=== PATIENT | male | born 1955 | race Caucasian/White ===

== ENCOUNTER → 2023-04-05 12:14 | Outpatient (REF) | payer OTHER, SELFPAY ==
[2023-04-05 13:30] LABS: Blood Urea Nitrogen 6 mg/dl (9-20); Calcium 8.4 mg/dl (8.4-10.2); Carbon Dioxide 24 mmol/L (22-30); Chloride 103 mmol/L (98-107); Glomerular Filtration Rate 50.9; Glucose 80 mg/dl (70-99); Potassium 3.5 mmol/L (3.5-5.1); Sodium 135 mmol/L (135-145)
== END ==
LOC: OLABP 12:14
PROVIDERS: ATTENDING PHYSICIAN Family Medicine
DX: Z95.1 Presence of aortocoronary bypass graft (principal)
CPT/HCPCS: 36415; 80048

== ENCOUNTER → 2023-09-03 08:01 | Outpatient (REF) | payer MEDICARE, OTHER, SELFPAY | LOC: DHCBS HW 08:01 | PROVIDERS: ATTENDING PHYSICIAN Internal Medicine Cardiovascular Disease; FAMILY PHYSICIAN Family Medicine | DX: R06.09 Other forms of dyspnea (principal) | CPT/HCPCS: 93306 ==

== ENCOUNTER 2024-11-02 20:59 | Emergency (ER) | payer MEDICARE, OTHER, SELFPAY ==
[2024-11-02 21:03] VITALS: BMI 29.3
[2024-11-02 21:08] VITALS: BP 143/110
[2024-11-02 21:30] VITALS: BP 136/103
[2024-11-02 22:00] VITALS: BP 120/85
[2024-11-02 22:24] LABS: % Basophils 0.5 % (0-2); % Eosinophils 0.2 % (0-6); % Immature Granulocytes 3.4 % (0-0.5); % Lymphocytes 12.9 % (20.5-51.1); % Monocytes 10.3 % (1.7-9.3); % Neutrophils 72.7 % (42.2-75.2); Absolute Basophils 0.1 10^3/uL (0-0.2); Absolute Immature Granulocytes 0.6 10^3/uL (0-0.05); Absolute Lymphocytes 2.2 10^3/uL (1.2-3.4); Absolute Monocytes 1.7 10^3/uL (0.1-0.6); Absolute Neutrophils 12.2 10^3/uL (1.4-6.5); Hematocrit 49.2 % (39.0-52.0); Hemoglobin 17.2 g/dL (13.0-18.0); Mean Corpuscular Hgb 29.7 pg (27.0-31.0); Mean Platelet Volume 9.4 fL (7.4-10.4); Nucleated Red Blood Cells % 0 % (-); Platelet Count 191 10^3/uL (130-400); Red Blood Cell Count 5.79 10^6/uL (4.70-6.10); Red Cell Dist. Width 15.4 % (11.5-14.5); White Blood Cell Count 16.8 10^3/uL (4.8-10.8)
[2024-11-02 22:38] LABS: Blood Urea Nitrogen 34 mg/dl (9-20); Calcium 9.4 mg/dl (8.4-10.2); Carbon Dioxide 23 mmol/L (22-30); Chloride 106 mmol/L (98-107); Estimated Creatinine Clearance 52 ml/min; Glucose 108 mg/dl (70-99); Potassium 3.6 mmol/L (3.5-5.1); Sodium 137 mmol/L (135-145); eGFR 46.93
--- NOTE | 2024-11-02 22:54 | ED.GENMED ---
History of Present Illness
General
Chief Complaint: Seizure
Time Seen by Provider: 11/02/24 21:27
History of Present Illness
History of Present Illness:
Patient is a 69-year-old male with history of seizures, CAD, hypertension, hyperlipidemia presenting to the emergency room after a seizure. Patient states that has been under a lot of stress and not sleeping as well. Today he was laying in bed
when he had a generalized tonic-clonic seizure. He did fall off the bed hitting the nightstand. Medics arrived and his seizure was resolved. Did not give him any medications. He has not missed any doses of his Keppra. He did chip his tooth. He
did hit his nose as well as his left knee. He denies any headache. No numbness tingling. He states that his last seizure before this was in July. His primary care doctor prescribes his Keppra.
Past History
Past History
ED Past Medical History: CAD, HTN and Other (Arthritis, hypertension)
ED Past Surgical History: Cardiac (Open heart surgery) and Orthopedic
Social History
Tobacco: Non-smoker
Alcohol: Occasional
Personal:
Living: with family
Employment: Retired
Family History
Family History: CAD
Phy Exam
Physical Exam
Physical Exam:
GENERAL: no acute distress, scattered brusising
HEENT: atraumatic, extraocular muscles intact, no signs of entrapment, small chip to the tooth #8 with no exposed dentin or pulp, tenderness over nasal bridge, small tongue lac, no other obvious trauma
NECK: no midline tenderness, normal range of motion,
BACK: no midline tenderness
CHEST: no tenderness
LUNGS: clear to auscultation bilaterally
CARDIOVASCULAR: regular rate and rhythm
ABDOMEN: soft, non-tender, no masses, no other obvious trauma
PELVIS: stable, no obvious injury
EXTREMITIES: tenderness over left knee otherwise moving all extremities, distal pulses intact, no other obvious trauma
NEUROLOGIC: awake, alert x 3, no focal deficits
Course
Orders/Labs/Results
Orders:
Orders
11/02/24 21:49
CT Facial Bones W/o Iv Contras Urgent
Comment:
Reason For Exam: tenderness of nasal bridge, zygomatic
CT Head W/o Iv Contrast Urgent
Comment:
Reason For Exam: seizure
CR Knee - Left 4 Or More View* Urgent
Comment:
Reason For Exam: trauma
11/02/24 22:15
Basic Metabolic Panel Urgent
Complete Blood Count/With Diff Urgent
Keppra (Levetiracetam) [S] Urgent
11/02/24 22:54
Calcium 200mg(Ca. Carb. 500mg) [Tums Chewable Tablet] 400 mg PO NOW STA
11/02/24 23:06
CT Cervical Spine W/o Iv Contr Urgent
Comment:
Reason For Exam: fall
Abnormal Lab Results
11/02/24
22:15
WBC 16.8 H 10^3/uL
(4.8-10.8)
RDW 15.4 H %
(11.5-14.5)
Abs Immat Gran (auto) 0.6 H 10^3/uL
(0-0.05)
Absolute Neuts (auto) 12.2 H 10^3/uL
(1.4-6.5)
Absolute Monos (auto) 1.7 H 10^3/uL
(0.1-0.6)
Immature Gran % 3.4 H %
(0-0.5)
Lymphocytes % 12.9 L %
(20.5-51.1)
Monocytes % 10.3 H %
(1.7-9.3)
BUN 34 H mg/dl
(9-20)
Creatinine 1.6 H mg/dL
(0.7-1.3)
Glucose 108 H mg/dl
(70-99)
11/02/24 22:15
11/02/24 22:15
Vital Signs
Initial and Last Documented VS:
Initial Vital Signs
Temp Pulse Resp Pulse Ox
97.6 F 104 18 98
11/02/24 21:03 11/02/24 21:03 11/02/24 21:03 11/02/24 21:03
Last Documented Vital Signs
Temp Pulse Resp BP Pulse Ox
97.6 F 80 16 118/70 98
11/02/24 21:03 11/03/24 00:32 11/03/24 00:32 11/03/24 00:32 11/03/24 00:32
MDM/Problems Addressed
Differential Diagnosis Includes:
Patient is a 69-year-old male presenting to the emergency department with a seizure. On arrival patient's vital signs are unremarkable exam does show scattered bruising, tenderness over his nasal bridge as well as his left knee. Concern for
traumatic injuries given the seizure and he fell off the bed. Seizure likely secondary to stress/sleep. Patient is afebrile so unlikely to be infectious and he does not have any signs or symptoms of an infection. He is compliant with his
medications. I did discuss with neurology who recommended increasing his Keppra to 750 mg twice daily. Blood work obtained. Does show leukocytosis which is likely a stress response. Creatinine is similar to prior. Will send out Keppra level.
Will obtain CT scan and x-ray of his knee for any traumatic injuries.
*Critical Care Note
Total Time (30-74mins, 75-104mins- exclusive of procedures): Not Applicable
Update Note
Update Note:
X-ray per my interpretation with no obvious fracture. Patient has been ambulatory. CT scans negative. Will discharge at this time.
Of note patient's does state that he recent started taking Flexeril for back pain. I did advise him that that can lower his seizure threshold and to stop taking the Flexeril.
ED Attending Note
-
Portions of this chart may have been created with voice recognition software.� Occasional wrong word or��sound alike� substitutions may have occurred due to the inherent limitations of voice recognition software.
Discharge Plan
Departure
Patient Disposition: Home (Routine Discharge)
Date of Disposition: 11/03/24
Time of Disposition: 00:36
Patient with high blood pressure during this ER visit?: No
Discharge Problem:
Seizure
Instructions: Seizures, Adult (DC)
Prescriptions:
New
levetiracetam [Keppra] 750 mg tablet
750 mg PO BID Qty: 60 0RF
No Action
levetiracetam [Keppra] 500 mg Tablet
500 mg PO BID
aspirin 81 mg Tablet,Delayed Release (Dr/Ec)
81 mg PO DAILY
cyanocobalamin (vitamin B-12) 1,000 mcg Tablet
1,000 mcg PO DAILY
therapeutic multivitamin Tablet
1 tab PO DAILY
clopidogrel 75 mg Tablet
75 mg PO DAILY Qty: 90 2RF
metoprolol tartrate 25 mg Tablet
25 mg PO BID Qty: 90 2RF
acetaminophen 325 mg Tablet
650 mg PO Q6HPRN PRN (Reason: mild pain,headache,temp >101F ) Qty: 0 0RF
furosemide 40 mg Tablet
40 mg PO DAILY Qty: 3 0RF
magnesium oxide 400 mg magnesium tablet
400 mg PO BID Qty: 90 2RF
Gralise 900 mg Tablet Extended Release 24 Hr
900 mg PO DAILY
rosuvastatin 20 mg tablet
20 mg PO HS
oxycodone 5 mg Tablet
5 mg PO Q6HPRN PRN (Reason: mild pain) Qty: 20 0RF
tizanidine 4 mg tablet
4 mg PO HS PRN (Reason: Muscle Spasms) Qty: 0 0RF
Referrals:
Casimiro Zepeda MD [Active] - Call in 1-3 days for appt
UNKNOWN - PT DOES,NOT KNOW [Family Provider] -
Activity Restrictions/Additional Instructions:
You were seen in the Emergency Department today for a seizure. While you were here we performed blood work, which was reassuring. He did have a slight elevation in your white count which likely is a stress response from your seizure. Please make
sure you follow-up with your primary care doctor to make sure it comes down.
Regarding your seizures we did increase your Keppra to 750 mg twice daily. Please make sure you follow-up with neurologist. I did give you our neurologist to follow-up with. Please make sure you get enough sleep. Please discontinue taking the
Flexeril as that might have also contributed to the seizure today.
Regarding your chipped tooth please make sure you follow-up with a dentist.
We would like for you to follow up with your primary care physician for further evaluation. If you experience fever, worsening of your symptoms, or develop any other new or concerning symptoms, please return to the Emergency Department immediately.
Please see the attached sheet for additional information.
Interventions
Interventions:
*Risk Screen - Suicide Last Done: 11/02/24 21:03
*General Assessment Last Done: 11/02/24 21:03
*Neglect/Abuse Screening Last Done: 11/02/24 21:03
*ED- Fall Risk Assessment Last Done: 11/02/24 21:03
*ED COVID-19 Vaccine History Last Done: 11/02/24 21:03
ED- Cardiac Assessment Last Done: 11/02/24 21:12
ED- Neurological Assessment Last Done: 11/03/24 00:32
ED- Pulmonary Assessment Last Done: 11/02/24 21:12
Discharge Date and Time
Print Language: PUERTO RICAN
[2024-11-02] MEDS: TUMS CHEWABLE TABLET 400 MG PO (23:04)
[2024-11-02 23:14] VITALS: BP 114/86
[2024-11-03 00:32] VITALS: BP 118/70
[2024-11-03 00:45] VITALS: BP 116/67
[2024-11-04 20:48] LABS: Keppra (Levetiracetam) 25 ug/mL (10-40)
== END 2024-11-03 00:54 | disposition home or self-care (01) ==
LOC: EMR 20:59
PROVIDERS: EMERGENCY PHYSICIAN Student in an Organized Health Care Education/Training Program
DX: R56.9 Unspecified convulsions (principal); I10 Essential (primary) hypertension; I25.10 Atherosclerotic heart disease of native coronary artery without angina pectoris; E78.00 Pure hypercholesterolemia, unspecified; M19.90 Unspecified osteoarthritis, unspecified site; Z82.49 Family history of ischemic heart disease and other diseases of the circulatory system
CPT/HCPCS: 99284; 70450; 70486; 72125; 73564; 80048; 80177; 85025

== ENCOUNTER 2025-01-07 22:19 | Inpatient (IN) | payer MEDICARE, OTHER, SELFPAY ==
[2025-01-07] VITALS (8 sets, daily range): BP systolic 77–128; BP diastolic 58–79; BMI 29.2; BMI 27.5
--- NOTE | 2025-01-07 19:55 | ED.GENMED ---
History of Present Illness
General
Chief Complaint: Weakness
Source: patient and spouse
Exam Limitations: none
Time Seen by Provider: 01/07/25 19:42
Nursing documentation reviewed up to this point in time: agreed with
History of Present Illness
History of Present Illness:
69-year-old male presents with low blood pressure weakness onset 2 weeks ago has CAD status post bypass surgery in 2022 seizure disorder on Keppra no seizure for a few years recently change his meds but did not get the new prescription yet, injury
to his right leg ran into a hard object with some erythema some drainage no fever no chest pain does feel short of breath has had some urinary incontinence, no hematuria no dark or bloody stools
Past History
Past History
ED Past Medical History: CAD, HTN and Other (Arthritis, hypertension)
ED Past Surgical History: Cardiac (Open heart surgery) and Orthopedic
Social History
Tobacco: Non-smoker
Alcohol: Occasional
Drug: None
Personal:
Living: with family
Employment: Retired
Family History
Family History: CAD
Phy Exam
Physical Exam
Physical Exam:
Physical Exam
General: Ill-appearing male normal mental
Neck: Dry lips
Heart: Regular
Lungs: Faint crackle
Abdomen nontender
Neuro: alert and oriented. no focal neurological deficits globally
Skin: no rash
Psychiatric: well kept. interactive and cooperative
Extremities: 4 x 5 cm area of erythema without warmth with drainage on the right lateral calf
Course
Orders/Labs/Results
Orders:
Orders
01/07/25 19:26
Electrocardiogram (*1) Urgent
Reason for Study: Syncope
EKG- Treatment ONCE
01/07/25 19:53
Cardiac Monitoring- Treatment ONCE
IV Insert/Care/Rem.- Treatment PRN
Urinalysis Reflex To Culture Urgent
01/07/25 19:54
Electrocardiogram (*1) Urgent
Reason for Study: Other
Other Reason for Exam: sepsis
EKG- Treatment ONCE
0.9% Sodium Chloride 500 ml [Nss] 500 ml IV BOLUS
CR Chest Portable - 1 View Urgent
Comment:
Reason For Exam: low bp
Reason Study Needs to be Portable: Unable to Transport
01/07/25 20:07
Complete Blood Count/With Diff Urgent
Comprehensive Metabolic Panel Urgent
Cortisol, Random Urgent
Lactic Acid Q4H
Comment: CANCEL 2nd LACTIC ACID IF 1st LACTIC ACID IS LESS THAN 2
NT-proBNP Urgent
PTT Urgent
Prothrombin Time Urgent
TSH Urgent
Troponin I Urgent
01/07/25 20:08
Blood Culture Q30M
HEATHER Source: Blood/Venous
Specimen Description:
01/07/25 20:30
Blood Culture Q30M
HEATHER Source: Blood/Venous
Specimen Description:
01/07/25 20:51
Bladder Scan- Treatment ONCE
01/08/25 00:00
Lactic Acid Q4H
Comment: CANCEL 2nd LACTIC ACID IF 1st LACTIC ACID IS LESS THAN 2
Abnormal Lab Results
01/07/25
20:07
Abs Immat Gran (auto) 0.4 H 10^3/uL
(0-0.05)
Absolute Monos (auto) 1.4 H 10^3/uL
(0.1-0.6)
Immature Gran % 3.9 H %
(0-0.5)
Monocytes % 14.8 H %
(1.7-9.3)
Sodium 133 L mmol/L
(135-145)
BUN 39 H mg/dl
(9-20)
Creatinine 3.5 H mg/dL
(0.7-1.3)
Calcium 12.4 H mg/dl
(8.4-10.2)
Total Protein 5.6 L g/dl
(6.3-8.2)
Albumin 3.4 L g/dl
(3.5-5.0)
01/07/25 20:07
01/07/25 20:07
Vital Signs
Initial and Last Documented VS:
Initial Vital Signs
Temp Pulse Resp BP Pulse Ox
97.5 F 68 20 88/58 100
01/07/25 19:17 01/07/25 19:17 01/07/25 19:17 01/07/25 19:17 01/07/25 19:17
Last Documented Vital Signs
Temp Pulse Resp BP Pulse Ox
97.5 F 79 20 82/67 96
01/07/25 19:17 01/07/25 20:30 01/07/25 20:30 01/07/25 20:30 01/07/25 19:55
MDM/Problems Addressed
Differential Diagnosis Includes:
Cardiogenic electrolyte dehydration conceivably PE infection
MDM/Problems Addressed:
Fatigue low blood pressure
Chronic conditions affecting care: CAD and Neurological disorder
Acute Exacerbation and/or Progression of Chronic Illness: CAD and Neurological disorder
*Radiology
Radiology exam reviewed: preliminary read by ED provider
*Pulse Oximetry
SaO2: 96
Nasal Cannula flow liters per minute: 97
Oxygen Mode of Delivery: Room air
Patient hypoxic: no
*EKG
Interpreted by ED Provider?: Yes
Interpretation: abnormal
Comparison EKG: no changes
Heart Rate: 70
Rate: normal
Rhythm: sinus
Ischemia: other (Age-indeterminate inferior MN)
*Peanut Separator Interpretation
Rate: normal
Interpretation: normal
Heart Rate: 70
*Critical Care Note
Total Time (30-74mins, 75-104mins- exclusive of procedures): 32
Update Note
Update Note:
Update labs noted acute on chronic renal sufficiency prior nephrology notes reviewed
Will check bladder scan
ED Attending Note
-
Portions of this chart may have been created with voice recognition software.� Occasional wrong word or��sound alike� substitutions may have occurred due to the inherent limitations of voice recognition software.
Discharge Plan
Departure
Patient Disposition: Admit
Date of Disposition: 01/07/25
Time of Disposition: 20:55
Presentation/result/management discussed w/ accepting MD/DO: Hospitalist
Patient with high blood pressure during this ER visit?: No
Condition: Fair
Discharge Problem:
RICCI (acute kidney injury)
Prescriptions:
No Action
Theragen Tablet
1 tab PO NOON
amlodipine 5 mg Tablet
5 mg PO DAILY
levetiracetam 750 mg Tablet
750 mg PO BID
diazepam 5 mg Tablet
5 mg PO BIDPRN PRN (Reason: anxiety)
valsartan 160 mg Tablet
160 mg PO HS
magnesium oxide 400 mg magnesium Tablet
400 mg PO HS
Referrals:
Noel Matthews DO [Family Provider, Family Practice]
Interventions
Interventions:
ED- Cardiac Assessment Last Done: 01/07/25 19:51
ED- Neurological Assessment Last Done: 01/07/25 19:51
ED- Pulmonary Assessment Last Done: 01/07/25 19:51
Discharge Date and Time
Print Language: NEPALI
[2025-01-07] MEDS: NSS 500 IV (20:15)
[2025-01-07 20:27] LABS: Hematocrit 43.7 % (39.0-52.0); Hemoglobin 15.7 g/dL (13.0-18.0); Mean Corp Hgb Conc. 35.9 g/dL (33.0-37.0); Mean Corpuscular Volume 86.2 fL (80.0-94.0); Nucleated Red Blood Cells % 0 % (-); Platelet Count 371 10^3/uL (130-400); Red Cell Dist. Width 13.9 % (11.5-14.5)
[2025-01-07 20:36] LABS: APTT 31.4 Sec (23.4-35.0); INR 0.96; PT 13.3 Sec (11.4-14.6)
[2025-01-07 20:48] LABS: ALT (SGPT) 19 U/L (0-50); AST (SGOT) 20 U/L (17-59); Albumin 3.4 g/dl (3.5-5.0); Alkaline Phosphatase 61 U/L (38-126); Blood Urea Nitrogen 39 mg/dl (9-20); Calcium 12.4 mg/dl (8.4-10.2); Carbon Dioxide 23 mmol/L (22-30); Chloride 102 mmol/L (98-107); Estimated Creatinine Clearance 23 ml/min; Glucose 87 mg/dl (70-99); Potassium 3.8 mmol/L (3.5-5.1); Sodium 133 mmol/L (135-145); Total Protein 5.6 g/dl (6.3-8.2); eGFR 18.35
[2025-01-07 20:49] LABS: Troponin I < 0.012 ng/ml
--- NOTE | 2025-01-07 20:51 | PHANOTE ---
01/07/2025, pt. was recently prescribed Briviact 100 mg BID to replace his Keppra 750 mg BID and Nayzilam 5 mg 1 spray intranasal BIDPRN for seizures, but has not had a chance to start either of these medications.
--- NOTE | 2025-01-07 20:57 | HPS.HSE ---
Addendum entered and electronically signed by Meena Armas MD 01/20/25 07:01:
Allergies
Allergy/AdvReac Type Severity Reaction Status Date / Time
No Known Allergies Allergy Verified 01/07/25 19:21
Home Medications
diazepam 5 mg tablet 5 mg PO BIDPRN PRN anxiety 01/07/25
magnesium oxide 400 mg PO HS Supplement 01/07/25
therapeutic multivitamin 1 tab PO NOON Supplement 01/07/25
brivaracetam 50 mg tablet (Briviact) 100 mg (2 x 50 mg) PO BID 30 days #120 tabs 01/13/25
cephalexin 500 mg capsule 500 mg PO QID 2 days #8 caps 01/13/25
doxycycline hyclate 100 mg capsule 100 mg PO BID 3 days #6 caps 01/13/25
nifedipine 30 mg tablet,extended release 30 mg PO DAILY 30 days #30 tabs 01/13/25
Original Note:
Family Physician
-
Family Physician: Noel Matthews
Chief Complaint
-
Weakness
History of Present Illness
This is a 69-year-old male with past medical history significant for CKD stage III, CAD status post CABG, hypertension, hyperlipidemia, EFRAIN, BPH, history of seizure disorder presented to the emergency department with weakness.
Patient reports 2 weeks of generalized weakness, shortness of breath and low blood pressures. He did see a neurologist yesterday and was told to follow-up with primary care. He had a blood pressure of 88/58 at the clinic.
Patient reports that he has been having increasing fatigue, decreased p.o. intake over the last 2 weeks. He denies abdominal pain. He denies any nausea, diarrhea or vomiting. He denies having any chest pain. Denies any new falls or injuries.
Patient denies any fever or chills, tick bites, recent travels or sick contacts. He states that he has discontinued his hydrochlorothiazide but continue to take the valsartan.
His last seizure was on December 27. After the seizure the patient's Keppra was to be increased to 1000 twice daily he was instead started on brivaracetam 100 mg twice daily although he has not picked up the prescription yet. He denies any other
seizures since the December 27.
Patient reports urinary frequency but without urgency. He also reports some nocturia. He denies any pelvic pain. He denies flank pain. Patient denies constipation. Reports chronic back pain with radicular symptoms that been going on for several
years. He does note some numbness in his lower extremities. He feels weak now he has recently started using a wheelchair.
Patient denies any chest pain. He denies palpitations. Reports shortness of breath but no chest pain pleuritic or otherwise.
Has not been any hematuria. Denies any melena or hematochezia. Denies any other changes in his medications. Denies nsaids. Denies contrast exposure.
Patient denies urinary frequency or incontinence. He denies hesitancy or urgency.
In the emergency department his blood pressure was 80/60 with a pulse of 79 and he was satting 98% on room air. His temperature was nine 7.5.
Chest x-ray shows no acute infiltrate. ECG with a normal sinus rhythm and and known T wave inversion in lead III. His troponin is negative. BNP is negative.
CBC is unremarkable. His electrolytes notable for sodium of 133 but otherwise unremarkable. His creatinine is 3.5 up from 1.6 BUN is 39. His calcium is elevated at 12.4. Albumin is normal at 3.4 with total protein of 5.6. LFTs otherwise
unremarkable.
Medical History
Past Medical History
Past Medical History: Reports Other
Additional Past Medical History:
CAD
HTN
HLD
CKDIII
remote seizure disorder (last 2018)
Arthritis
BPH
gout
chronic anemia
Past Surgical History: Reports Other (CABG x 3 NATION-LAD; SVG-D1; SVG-OM (03/19/23))
Additional Past Surgical History:
R CATALINO
RLE vein ablation
B/L inguinal hernia repair
Social History
Tobacco: Non-smoker
Alcohol: Occasional
Drug: None
Personal:
Living: With Family
Employment: Retired
Family History
Family History: CAD
Allergies / Home Medications
Allergies reflects when Allergies were last updated in [facility].
Home Medications with original date entered in [facility]
Allergy/Medication List:
NKDA
Review of Systems
-
History Source: Patient and Family
A 12 point ROS was completed and negative except as noted: Yes
Constitutional: Reports See HPI
EENT: Reports No Symptoms
Respiratory: Reports Other (Dyspnea on exertion)
Cardiac: Denies Chest Pain or Diaphoresis
Abdomen/GI: Reports Anorexia; Denies Abdominal Pain, Nausea, Vomiting, Diarrhea, Constipated, Bloody Stools or Black Stools
: Reports No Symptoms
Skin: Reports Other (Laceration of the right lower extremity)
Neurological: Reports Weakness
Endocrine: Reports No Symptoms
Hematologic/Lymphatic: Reports No Symptoms
Psych: Reports No Symptoms
Physical Exam
Vital Signs
Vital Signs
Temp Pulse Resp BP Pulse Ox
97.5 F 79 20 82/67 96
01/07/25 19:17 01/07/25 20:30 01/07/25 20:30 01/07/25 20:30 01/07/25 19:55
Physical Exam
General: Well Developed, Well Nourished and Other (rigors)
HEENT: NormoCephalic
Respiratory: Clear
Cardiac: S1/S2 and Regular Rhythm
Breast: N/A
GI: Soft
Rectal: Brown
Genito-urinary: Deferred by me
Musculoskeletal: No Clubbing, No Cyanosis and No Edema
Skin: Warm, Dry and Other (median sternotomy intact w/o erythema; left thigh SVG site ecchymotic, no erythema)
Neuro: AO x 3, Cranial Nerves Intact, No Sensory Deficits and Other (bilateral lower extremity weakness.)
Hematologic/Lymphatic: No Lymphadenopathy
Psych: Anxious
Laboratory Results
-
01/07/25 20:07
01/07/25 20:07
Laboratory Results
PT 13.3 Sec (11.4-14.6) 01/07/25 20:07
INR 0.96 01/07/25 20:07
APTT 31.4 Sec (23.4-35.0) 01/07/25 20:07
Lactic Acid 1.7 mmol/L (0.7-2.0) 01/07/25 20:07
Total Bilirubin 0.7 mg/dl (0.2-1.3) 01/07/25 20:07
AST 20 U/L (17-59) 01/07/25 20:07
ALT 19 U/L (0-50) 01/07/25 20:07
Alkaline Phosphatase 61 U/L (38-126) 01/07/25 20:07
Troponin I < 0.012 ng/ml 01/07/25 20:07
Data Reviewed
-
Diagnostic Radiology: Report Reviewed by me
Medical Tests (Nuc Med, Echo, EKG etc): Image Personally Visualized and interpreted
Lab Data: Labs Reviewed by me
Old Records: Reviewed
Impression/Plan
-
IMPRESSION:
Six 9-year-old with past medical history of CAD status post CABG, hypertension, seizure disorder, chronic back pain, CKD who presents to the emergency department with low blood pressures and 2 weeks of weakness decreased p.o. intake was found to
have RICCI with a creatinine of 3. He has EKG with a normal sinus rhythm, chest x-ray was clear, troponin was negative. BNP shows no heart failure. Labs notable for creatinine of 3.54 from a baseline of 1.6 with a calcium of 12.4 and albumin
albumin of 3.4. He is CBC was completely unremarkable. He was borderline hypotensive with a systolic blood pressure in the 80s.
PLAN:
1. Low BP - Unclear etiology as no signs of acute infection, heart failure or cardiomyopathy. Suspect hypovolemia, medication induced.
- admit to med/surg
- hold valsartan and amlodipine
- check orthostatic
- tsh and cortisol pending
- echo
- check esr/crp , blood cx
- IV fluids with NS for now
- u/a, ucx
- nephrology consulted
2. RICCI - Suspect from hypotension but cannot rule out obstruction given hx. Also hypercalcemia. TP/Alb ratio is normal.
- u/a, urine protein/cr
- i/o, non-oliguric but will check urine sodium
- bladder scan
- Kidney/bladder us
- hold valsartan and amlodipine as above
- check cpk and inflammatory panel
3. Hypercalcemia - Unclear etiology but corrected calciuim is elevated
- check phosph, pth, vit d
- IV fluids for now
- no indication for calcitonin or pamidronate at this time
- check spep
4.seizure d/o - last seizure 12/27
- continue with brivaracetam 100 bid
DVT PPX - heparin sq
Code statu s- Full Code
[2025-01-07 21:18] LABS: Cortisol, Random 4.4 ug/dl; TSH 2.29 uIU/ml (0.47-4.68)
[2025-01-07] MEDS: BRIVIACT 100 MG PO (22:07)
[2025-01-07] MEDS: FLUSH (NSS) 1 FLUSH IV (22:07)
[2025-01-07] MEDS: NSS 1000 IV (22:08)
[2025-01-08] MEDS: NSS 1000 IV ×3 (00:13→22:08)
[2025-01-08] MEDS: HEPARIN SC (00:13)
[2025-01-08] MEDS: TYLENOL 650 MG PO ×2 (00:23→16:10)
[2025-01-08 07:00] VITALS: BP 119/79
[2025-01-08] MEDS: BRIVIACT 100 MG PO ×2 (08:36→20:21)
[2025-01-08] MEDS: HEPARIN 5000 UNITS SC ×2 (08:37→15:14)
[2025-01-08 09:59] LABS: Hematocrit 42.7 % (39.0-52.0); Hemoglobin 14.8 g/dL (13.0-18.0); Mean Corp Hgb Conc. 34.7 g/dL (33.0-37.0); Mean Corpuscular Volume 88.0 fL (80.0-94.0); Platelet Count 303 10^3/uL (130-400); Red Cell Dist. Width 13.8 % (11.5-14.5)
[2025-01-08 10:20] VITALS: BP 118/82; BP 119/82; BP 123/88; PULSE 85; PULSE 91
[2025-01-08 10:48] LABS: Blood Urea Nitrogen 37 mg/dl (9-20); Calcium 12.2 mg/dl (8.4-10.2); Carbon Dioxide 23 mmol/L (22-30); Chloride 104 mmol/L (98-107); Estimated Creatinine Clearance 26 ml/min; Glucose 79 mg/dl (70-99); Magnesium 2.5 mg/dl (1.6-2.3); Potassium 4.4 mmol/L (3.5-5.1); Sodium 135 mmol/L (135-145); eGFR 20.43
[2025-01-08 11:03] LABS: C-Reactive Protein 15.30 mg/L (0.0-10.00)
[2025-01-08 11:04] LABS: Vitamin D, 25-OH*** 99.1 ng/mL (30-80)
[2025-01-08 11:37] LABS: Vitamin B12 > 1000 pg/ml (239-931)
--- NOTE | 2025-01-08 11:43 | CARDSERVLU ---
Echocardiogram with Lumason completed after protocol screening completed. Allergies verified.
Patent IV site: _Left arm accessory cephalic 18 G PC (in patient)____
IV site flushed with 0.9% NaCl pre and post administration.
Diluted bolus method utilized to enhance visualization of ventricular simon.
Total volume given: _3___ mL
Patient tolerated all procedures well without complications.
--- NOTE | 2025-01-08 13:24 | WOUNDNOTE ---
RIGHT LEG WOUND
--- NOTE | 2025-01-08 13:24 | WOUNDNOTE ---
RIGHT LEG WOUND
--- NOTE | 2025-01-08 13:24 | WOUNDNOTE ---
RIGHT LEG WOUND
--- NOTE | 2025-01-08 13:25 | WOUNDNOTE ---
RIGHT LEG WOUND
[2025-01-08 13:56] LABS: Urine Character Clear (Clear)
[2025-01-08 14:10] LABS: Urine Squamous Cell 0-2 /LPF (Few)
--- NOTE | 2025-01-08 14:36 | W.PN.HOSP.TC ---
Today's Communication/Plan
-
see A/P
Assessment / Plan
Assessment / Plan
HPI: 69-year-old M with past medical history of CAD status post CABG, hypertension, seizure disorder, chronic back pain, CKD stage III, BPH; who presented with low blood pressures and 2 weeks of weakness, decreased p.o. intake, and was found to have
RICCI with a creatinine of 3.54 from a baseline of 1.6. Also calcium of 12.4.
He was borderline hypotensive with a systolic blood pressure in the 80s on admission.
Of note, his last seizure was on December 27. After the seizure the patient's Keppra was to be increased to 1000 twice daily he was instead started on brivaracetam 100 mg twice daily although he has not picked up the prescription yet. He denies any
other seizures since the December 27.
A/P:
# Dehydration with Low BP, RICCI and hypercalcemia
hold [employer]PRES[employer] valsartan and amlodipine
orthostatic VS equivocal
blood culture were sent, follow up
CRP mildly elevated at 15
Cont IVF NSS, adjust to 100 cc/hr
Noted TSH WNL at 2.29, but random cortisol level at 4.4. Can check morning cortisol level
# RICCI on CKD stage 3
RICCI suspect from dehydration
SCr 3.5 on admission -> 3.2 today
Cont IVF as above
Check bladder scan with urinary retention protocol
Kidney/bladder US unrevealing: Findings suggesting chronic medical renal disease, similar to prior. Prostatomegaly.
Renal CS
hold valsartan and amlodipine as above
SPEP sent, follow up
# hypercalcemia, suspect from dehydration
Noted 25 vit D level high at 99, Phosphate level high at 5
Follow PTH level
IVF as above
Renal CS as above
# RLE wound from injury on 12/19 from hitting a table
# Possible RLE cellulitis
appreciate wound RN
Check arterial US , venous US
Can start empiric Abx Ancef/doxycycline
Consider ID CS if not improving
# Seizure d/o - last seizure 12/27
continue with brivaracetam 100 bid, Valium PRN
DVT PPX - heparin sq
Code status- Full Code
d/w son at bedside
total time spent 51 min
Anticipated Discharge: 24 - 48 hours
Subjective/Interval History
-
Date of Service: January 08, 2025
Objective Data
-
Labs:
Laboratory Results
01/08/25
09:31
WBC 7.6
Hgb 14.8
Hct 42.7
Plt Count 303
Sodium 135
Potassium 4.4
Chloride 104
Carbon Dioxide 23
BUN 37 H
Creatinine 3.2 H
Glucose 79
Calcium 12.2 H
Vital Signs:
Vital Signs
Temp Pulse Resp BP Pulse Ox
36.5 C 76 18 119/79 97
01/08/25 07:00 01/08/25 07:00 01/08/25 07:00 01/08/25 07:00 01/08/25 08:15
Review of Systems
-
History Source: Patient
All other systems: Reviewed and negative
Physical Exam
-
General: Well Developed, Well Nourished, No Apparent Distress and Comfortable
HEENT: Normocephalic and Atraumatic
Respiratory: Clear to Auscultation and Non Labored Respirations; Negative Wheezes, Rales or Accessory Resp Muscle Use
Cardiac: Regular Rhythm and S1/S2
GI: Soft and Nontender
Musculoskeletal: No Edema
Skin: Other (RLE wound, see wound care note )
Neuro: Awake and Alert
Psych: Calm and Intact Judgement/Insight
Data Reviewed
-
Labs: Labs Reviewed by me
--- NOTE | 2025-01-08 14:59 | WOUNDNOTE ---
RIGHT GREAT TOE
--- NOTE | 2025-01-08 14:59 | WOUNDNOTE ---
RIGHT LEG WOUND
--- NOTE | 2025-01-08 15:10 | W.CON.NEPH ---
Consultation
-
Date/Time Consultation Requested: 01/08/2025 3:00 PM
Date/Time Consultation Performed: 01/08/2025 3:15 PM
Requesting Provider: Dr. Strong
Performing Provider: Dr. Yeager
Reason for Consultation: Acute kidney injury, hypercalcemia
Medical History
-
Chief Complaint: Acute kidney injury/hypercalcemia
History of Present Illness:
The patient is a 69-year-old male with a past medical history of hypertension maintained on amlodipine and valsartan. He has known chronic kidney disease stage III and maintains a baseline creatinine of 1.6 as of October 2024. He has a known history
of coronary artery disease and has undergone previous CABG procedure. He is maintained on Levetiracetam for seizure history. He presented to the hospital last night after having 2 weeks of generalized weakness shortness of breath and low blood
pressure. The patient reports that he has had increasing fatigue decreased p.o. intake over the past 2 weeks. He denies any associated abdominal pain nausea vomiting or diarrhea. He denied any associated chest pain. He denied any fevers chills
or rigors. He states that he had recently discontinued his hydrochlorothiazide but continued his valsartan. He had had a recent seizure on December 27. After that seizure the patient's Keppra was increased to 1000 mg twice daily. The patient
presented to the hospital hypotensive with systolic blood pressure of 80/60. Of note he was in acute renal failure with his creatinine up to 3.5 off of his baseline of 1.6 noted in October 2024. There was also associated hypercalcemia with a calcium
of 12.4 and nephrology was asked to see the patient.
Past Medical History
CAD
HTN
HLD
CKDIII (1.6)
remote seizure disorder (last 2018)
Arthritis
BPH
gout
chronic anemia
Past Surgical History: Reports Other (CABG x 3 NATION-LAD; SVG-D1; SVG-OM (03/19/23))
Additional Past Surgical History:
R CATALINO
RLE vein ablation
B/L inguinal hernia repair
Social History
Tobacco: Non-Smoker
Alcohol: Occasional
Drug: None
Personal:
Living: With Family
Family History
no CKD
Family History: Not Pertinent
Allergies / Home Medications
Allergy/AdvReac Type Severity Reaction Status Date / Time
No Known Allergies Allergy Verified 01/07/25 19:21
�Medication �Instructions �Recorded �Confirmed �Type
amlodipine 5 mg tablet 5 mg PO DAILY Blood Pressure 01/07/25 01/07/25 History
diazepam 5 mg tablet 5 mg PO BIDPRN PRN anxiety 01/07/25 01/07/25 History
levetiracetam 750 mg tablet 750 mg PO BID Neurological 01/07/25 01/07/25 History
Condition
magnesium oxide 400 mg PO HS Supplement 01/07/25 01/07/25 History
therapeutic multivitamin 1 tab PO NOON Supplement 01/07/25 01/07/25 History
valsartan 160 mg tablet 160 mg PO HS Blood Pressure 01/07/25 01/07/25 History
Review of Systems
-
History Source: Patient
All other systems: Negative unless noted
Constitutional: Weight Loss (20 pounds over the past 2 to 3 weeks) and Other (Weakness)
Respiratory: Other (Some dyspnea on exertion)
Abdomen/GI: No Symptoms and Anorexia
: Other (Chronic nocturia no hematuria)
Musculoskeletal: Other (Chronic back pain)
Skin: Other (Right leg wound)
Neurological: Numbness (Numbness in his lower extremities) and Other (Last seizure December 27)
Physical Exam
Vital Signs
Vital Signs
Temp Pulse Resp BP Pulse Ox
97.7 F 76 18 119/79 97
01/08/25 07:00 01/08/25 07:00 01/08/25 07:00 01/08/25 07:00 01/08/25 08:15
Lab Results
01/08/25 09:31
01/08/25 09:
WBC 7.6 10^3/uL (4.8-10.8) 01/08/25 09:
RBC 4.85 10^6/uL (4.70-6.10) 01/08/25 09:
Hgb 14.8 g/dL (13.0-18.0) 01/08/25 09:
Hct 42.7 % (39.0-52.0) 01/08/25 09:
Plt Count 303 10^3/uL (130-400) 01/08/25 09:
Sodium 135 mmol/L (135-145) 01/08/25 09:
Potassium 4.4 mmol/L (3.5-5.1) 01/08/25
Chloride 104 mmol/L (98-107) 01/08/25 09:
Carbon Dioxide 23 mmol/L (22-30) 01/08/25 09:
BUN 37 mg/dl (9-20) H 01/08/25 09:
Creatinine 3.2 mg/dL (0.7-1.3) H 01/08/25 09:
eGFR 20.43 01/08/25 09:
Glucose 79 mg/dl (70-99) 01/08/25 09:
Calcium 12.2 mg/dl (8.4-10.2) H 01/08/25 09:
Phosphorus 5.0 mg/dl (2.5-4.5) H 01/08/25 09:
Ajy-A-Zwxkaenncmq Pept 281 pg/ml 01/07/25 20:07
Albumin 3.4 g/dl (3.5-5.0) L 01/07/25 20:07
Physical Exam
General: AOx3, Nontoxic , NAD
HEENT: PERRL, EOMI, Anicteric, Conjunctivae Clear, Ear/Nose Intact, Hearing Normal, Oropharynx Clear/Moist, Dentition Intact, Facial Symmetry, Neck Supple, Neck: Trachea Midline, No JVD and No Thyromegaly, no Bruits
Respiratory: Clear to auscultation bilaterally with normal lung excursion
Cardiac: S1/S2 and Regular Rate/Rhythm
Breast: Deferred by me
Abdomen: Soft, Nontender, Nondistended, Normal Bowel Sounds and No Hepatosplenomegaly
Rectal: Deferred by Provider
Genito-urinary: No Costovertebral Tenderness
Extremities: No Clubbing, No Cyanosis and No Edema
Skin: Right posterior extremity wound with healed eschar
Neuro: Nonfocal/Grossly Intact, CN II-XII (Intact) and Strength (Musculoskeletal exam 5 out of 5 both upper and lower extremities)
Hematologic/Lymphatic: No Cervical Lymphadenopathy, No Submandibular Lymphadenopathy and No Supraclavicular Lymphadenopathy
Psych: Mood/afflect pleasant, Insight/judgement good and Appropriate
Vascular: plus 2 pedal and radial pulses
Data Reviewed
-
Radiology: Image Personally Visualized and interpreted (Chest x-ray reviewed: Sternal wires noted no evidence of congestive heart failure or pneumonic process)
Ultrasound: Report Reviewed by me (Renal ultrasound report reviewed: Roughly symmetrical kidney sizes with bilateral renal cortical thinning with echogenicity of renal parenchyma, no hydronephrosis)
Medical Tests (Nuc Med, Echo etc): Other (EKG report reviewed normal sinus rhythm with inferior infarct pattern T wave inversions in inferior leads T wave inversions no longer evident in anterior leads shortened QT 87 bpm)
Labs: Labs Reviewed by me (BMP CBC urine studies)
Old Records: Reviewed (Reviewed old lab work from date 11/02/2024 in the electronic medical record creatinine 1.6 calcium was normal)
Assessment/Plan
-
Impression:
Weakness/Hypotension
Acute kidney injury (3.5)
Hypercalcemia (12.4)
CKD stage III with baseline creatinine 1.6
History of seizure disorder
History of coronary artery disease with previous CABG
Chronic back pain
RLE wound from injury on 12/19 from hitting a table
Plan:
RICCI/Hypercalcemia:
- Likely prerenal he mediated in setting of valsartan administration with hypotension
- Withholding antihypertensives and providing isotonic saline
- RICCI could also be precipitated by hypercalcemia
- Hypercalcemia workup in progress (will add PTH RP)(pth, vitamin D, spep)TSH
- Narrow anion gap of 6 concerning for dysproteinemia process, obtain SPEP and kappa lambda free light chain ratio
-If calcium level remains elevated tomorrow we will provide pamidronate
- Kidney and bladder ultrasound: Reviewed without hydronephrosis but notable for chronic kidney disease changes
-Urinalysis reviewed 2+ blood 1 plus albumin, 200 mg of proteinuria urine protein to creatinine ratio
-Of note cortisol level was relatively low at only 4.4 in setting of hypotension, question adrenal insufficiency, needs cortical stim test
- Blood cultures re: right lower extremity wound pending
--- NOTE | 2025-01-08 15:14 | WOUNDNOTE ---
[facility] RN note: Patient admitted with weakness
See H&P for complete history.
PMH: CKD stage III, HTN, arthritis, anemia, gout, BPH, RLE vein ablation, hernia repair, seizure disorder (last seizure December 27, 2024).
Wound Location and type/assessment: Patient admitted with right lower leg traumatic, full thickness wound with fat exposed. Patient reports hitting his leg against a table on 12/19. Patient showed this writer producer what appeared to be deep dermal skin tear
with intact flap. Patient said he tried to pull flap over wound but it didn't completely cover wound. At time of assessment the skin tear appears black but is soft when palpated. The periwound and leg are red, but no induration or pain noted. The
remaining 80% of wound is covered with hypergranular tissue. Patient reports a large amount of drainage. He has been cleaning and covering wound daily. He has a faint pedal pulse and his right foot is dusky appearing. Also noted on right foot are
scabbed areas on 3rd and 4th toe and open wound to right great toe. Patient said these wounds occurred as a result He reports occasional pain in right LE upon ambulation.
Appetite: States decreased appetite the past few weeks.
Pressure redistribution devices in place: Versa Care Accumax. Patient stands and changes position easily.
Plan: Wounds cleaned with Vashe. Alginate applied to leg wound and silicone border foam to right great toe. TT Dr. Strong and plan is to hold off on compression until after results of imaging. JAMAAL Smith given update. Suggested to patient follow up at
[facility]. Will continue to follow during in-patient stay.
=
Note to case management of equipment requested for discharge: Follow up at [facility]
Recommend follow up at wound care center upon discharge.
[2025-01-08 16:00] VITALS: BP 125/88
[2025-01-08] MEDS: LIDOCAINE 4% PATCH 1 PATCH TOPICAL (16:05)
[2025-01-08] MEDS: ANCEF 5 IV (16:06)
[2025-01-08] MEDS: VIBRAMYCIN 260 MG IV (16:06)
--- NOTE | 2025-01-08 16:18 | CM ---
Chart reviewed and patient was admitted with acute renal failure. Patient states he lives with his spouse in a 2 story home, with 2 steps to enter, patient is independent with adl's and ambulation, has a cane or walker that he does not use.
PCP: Dr. Matthews
Pharmacy: [facility] in [place].
[2025-01-08 23:49] VITALS: BP 132/87
[2025-01-09] MEDS: HEPARIN 5000 UNITS SC ×2 (00:20→07:46)
[2025-01-09] MEDS: ANCEF 5 IV ×4 (00:20→23:17)
[2025-01-09] MEDS: VIBRAMYCIN 260 MG IV ×2 (04:21→15:16)
[2025-01-09 07:10] VITALS: BP 146/91
[2025-01-09] MEDS: NSS IV ×2 (07:44→10:10)
[2025-01-09] MEDS: BRIVIACT 100 MG PO ×2 (07:45→23:06)
[2025-01-09] MEDS: LIDOCAINE 4% PATCH TOPICAL (07:48)
[2025-01-09] MEDS: NSS (PRESERVATIVE FREE) 1 ML IV (08:20)
[2025-01-09] MEDS: CORTROSYN 0.25 MG IV (08:20)
[2025-01-09 08:29] VITALS: BMI 27.5
[2025-01-09 08:35] LABS: Blood Urea Nitrogen 29 mg/dl (9-20); Calcium 11.5 mg/dl (8.4-10.2); Carbon Dioxide 22 mmol/L (22-30); Chloride 108 mmol/L (98-107); Estimated Creatinine Clearance 36 ml/min; Glucose 95 mg/dl (70-99); Magnesium 1.8 mg/dl (1.6-2.3); Potassium 3.9 mmol/L (3.5-5.1); Sodium 136 mmol/L (135-145); eGFR 30.36
[2025-01-09 09:01] LABS: ACTH Stim Cortisol 0 Min 2.3 ug/dl
[2025-01-09 09:51] LABS: ACTH Stim Cortisol 30 Min 13.2 ug/dl
--- NOTE | 2025-01-09 10:10 | PTCARENOTE ---
Addendum entered by Leyla Roman RN 01/09/25 12:16:
01/09- Educated patient with Physician. Patient is willing to comply with IV fluids at this time again.
Original Note:
01/09- Patient refuses any more NSS because he is starting to eat and drink again, and he's concerned his blood pressure will go back up with 'all this fluid.' Educated him on purpose of fluids and benefits of hydration. He verbalized
understanding, but he still refuses.
[2025-01-09 10:12] LABS: ACTH Stim Cortisol 60 Min 16.1 ug/dl
--- NOTE | 2025-01-09 11:02 | W.PN.HOSP.TC ---
Addendum entered and electronically signed by Rosy Strong MD 01/09/25 13:27:
# Hyponatremia, resolved
Original Note:
Today's Communication/Plan
-
see A/P
Assessment / Plan
Assessment / Plan
HPI: 69-year-old M with past medical history of CAD status post CABG, hypertension, seizure disorder, chronic back pain, CKD stage III, BPH; who presented with low blood pressures and 2 weeks of weakness, decreased p.o. intake, and was found to have
RICCI with a creatinine of 3.54 from a baseline of 1.6. Also calcium of 12.4.
He was borderline hypotensive with a systolic blood pressure in the 80s on admission.
Of note, his last seizure was on December 27. After the seizure the patient's Keppra was to be increased to 1000 twice daily he was instead started on brivaracetam 100 mg twice daily although he has not picked up the prescription yet. He denies any
other seizures since the December 27.
A/P:
# Dehydration, hypotension POA, RICCI and hypercalcemia
hold [employer] valsartan and amlodipine
orthostatic VS equivocal
blood culture were sent on admission, so far negative
CRP mildly elevated at 15
Cont IVF NSS, adjust to 80 cc/hr
Noted TSH WNL at 2.29, random cortisol level at 4.4.
Stim test with cortisol response to 16 indicating likely poor response, ?primary adrenal insufficiency, renal on board
# RICCI on CKD stage 3
RICCI suspect from dehydration
SCr 3.5 on admission -> 2.3 today
Cont IVF as above
Cont bladder scan with urinary retention protocol
Kidney/bladder US unrevealing: Findings suggesting chronic medical renal disease, similar to prior. Prostatomegaly.
Renal on board
hold valsartan and amlodipine as above
Follow SPEP and kappa lambda free light chain ratio
# hypercalcemia, suspect from dehydration vs others
Noted 25 vit D level high at 99, Phosphate level high at 5
Follow PTHrP level (was elevated at 5.8 in 2022)
IVF as above
Renal on board
# Chronic lower Lumbar back pain
Per pt, s/p lumbar decompression procedure about 2 months [employer] LO[employer]
check CT lumbar spine (pt states last lumbar imaging was 1 year ago)
# RLE wound from injury on 12/19 from hitting a table
# Possible RLE cellulitis
appreciate wound RN
Check arterial US , venous US
Started empiric Abx Ancef/doxycycline
Consider ID CS if not improving
# Seizure d/o - last seizure 12/27
continue with brivaracetam 100 bid, Valium PRN
DVT PPX - heparin sq
Code status- Full Code
DW Renal
DW RN
DW at bedside
total time spent 51 min
Anticipated Discharge: > 48 hours
Subjective/Interval History
-
Date of Service: January 09, 2025
Objective Data
-
Labs:
Laboratory Results
01/09/25
08:03
Sodium 136
Potassium 3.9
Chloride 108 H
Carbon Dioxide 22
BUN 29 H
Creatinine 2.3 H
Glucose 95
Calcium 11.5 H
Vital Signs:
Vital Signs
Temp Pulse Resp BP Pulse Ox
36.6 C 84 16 146/91 99
01/09/25 07:10 01/09/25 07:10 01/09/25 07:10 01/09/25 07:10 01/09/25 07:50
I&O
01/08/25 01/09/25 01/10/25
06:59 06:59 06:59
Intake Total 960 / 960
Output Total 800 / 800
Balance 160 / 160
Review of Systems
-
History Source: Patient
All other systems: Reviewed and negative
Musculoskeletal: Reports Other (chronic lower lumbar back pain)
Physical Exam
-
General: Well Developed, Well Nourished, No Apparent Distress, Comfortable and Conversant
HEENT: Normocephalic and Atraumatic
Respiratory: Clear to Auscultation and Non Labored Respirations; Negative Wheezes, Rales or Accessory Resp Muscle Use
Cardiac: Regular Rhythm and S1/S2
GI: Soft and Nontender
Musculoskeletal: No Edema
Skin: Other (RLE wound, see wound care note )
Neuro: Awake and Alert
Psych: Calm and Intact Judgement/Insight
Data Reviewed
-
Labs: Labs Reviewed by me
--- NOTE | 2025-01-09 11:32 | PN.CDI ---
CDI
- -
CDI:
Physician Documentation Request
Admit Date: 01/07/25 22:19
Dear Doctor Ligia,
Clinical Indicators:
Patient admitted with dehydration and RICCI.
01/07 H & P,'...Patient reports that he has been having increasing fatigue, decreased p.o. intake over the last 2 weeks...His electrolytes notable for sodium of 133.'
IVF NSS 500 ml bolus x 1, then 100 ml/hr.
Sodium level on admission:
01/07/25
20:07
Sodium 133 L
Based on the above, could you clarify in the progress notes, the appropriate diagnosis, if significant, that supports the above abnormalities and additional evaluation, monitoring and/or treatment rendered:
Hyponatremia
Abnormal lab value, clinically insignificant
Other, please specify
Use of terms such as suspected, likely, concern for, or probable (associated with a specific diagnosis that is being evaluated, monitored, or treated as if it exists) are acceptable and can be coded in the inpatient setting, when documented at the
time of discharge.
Thank you,
SARAH Yancey RN
CDI Specialist
available via tiger text
Please use your independent medical judgment in providing your response.
[2025-01-09] MEDS: NSS 1000 IV (12:17)
--- NOTE | 2025-01-09 13:39 | CM ---
Chart reviewed and patient is having difficulty ambulating per physical therapy notes, will follow for recommendations, patient lives with spouse, medical work up in progress.
Plan; To follow with patient progress.
--- NOTE | 2025-01-09 13:44 | W.PN.NEPH.PH ---
Today's Communication / Plan
-
Continue normal saline
Assessment/Plan
-
Impression:
Weakness/Hypotension
Acute kidney injury (3.5)
Hypercalcemia (12.4)
CKD stage III with baseline creatinine 1.6
History of seizure disorder
History of coronary artery disease with previous CABG
Chronic back pain
RLE wound from injury on 12/19 from hitting a table
Plan:
RICCI/Hypercalcemia:
- Likely prerenal he mediated in setting of valsartan administration with hypotension
- Withholding antihypertensives and providing isotonic saline
- RICCI could also be precipitated by hypercalcemia
- Hypercalcemia workup in progress (will add PTH RP)(pth, vitamin D, spep)TSH
- Narrow anion gap of 6 concerning for dysproteinemia process, obtain SPEP and kappa lambda free light chain ratio
-
- Kidney and bladder ultrasound: Reviewed without hydronephrosis but notable for chronic kidney disease changes
-Urinalysis reviewed 2+ blood 1 plus albumin, 200 mg of proteinuria urine protein to creatinine ratio
-Of note cortisol level was relatively low at only 4.4 in setting of hypotension, question adrenal insufficiency,
cortical stim test= baseline 2.3/30 minutes 13.2/60 minutes 16.1= low initial baseline less than 3 consistent with adrenal insufficiency though the response at 30 and 60 marginal
Blood pressure improved with saline and creatinine improved= at this time I would continue normal saline for the time being and will consider fludrocortisone once volume repleted. Will consider repeat test as well
- Blood cultures re: right lower extremity wound pending
-
-
Date of Service: January 09, 2025
CC / HPI / ROS
-
Chief Complaint:
Acute on chronic kidney disease
History of Present Illness:
Hypotension with acute kidney injury on chronic kidney disease with right lower extremity wound and weight loss over 2-week.
Review of Systems:
No chest pain or shortness of breath
Labs
-
Labs:
WBC 7.6 10^3/uL (4.8-10.8) 01/08/25 09:31
RBC 4.85 10^6/uL (4.70-6.10) 01/08/25 09:31
Hgb 14.8 g/dL (13.0-18.0) 01/08/25 09:31
Hct 42.7 % (39.0-52.0) 01/08/25 09:31
Plt Count 303 10^3/uL (130-400) 01/08/25 09:31
Sodium 136 mmol/L (135-145) 01/09/25 08:03
Potassium 3.9 mmol/L (3.5-5.1) 01/09/25 08:03
Chloride 108 mmol/L (98-107) H 01/09/25 08:03
Carbon Dioxide 22 mmol/L (22-30) 01/09/25 08:03
BUN 29 mg/dl (9-20) H 01/09/25 08:03
Creatinine 2.3 mg/dL (0.7-1.3) H 01/09/25 08:03
eGFR 30.36 01/09/25 08:03
Glucose 95 mg/dl (70-99) 01/09/25 08:03
Calcium 11.5 mg/dl (8.4-10.2) H 01/09/25 08:03
Phosphorus 5.0 mg/dl (2.5-4.5) H 01/08/25 09:31
Wmn-O-Dgpkigsxoeu Pept 281 pg/ml 01/07/25 20:07
Albumin 3.4 g/dl (3.5-5.0) L 01/07/25 20:07
Physical Exam
-
Vital Signs:
Vital Signs
Temp Pulse Resp BP Pulse Ox
97.8 F 84 16 146/91 99
01/09/25 07:10 01/09/25 07:10 01/09/25 07:10 01/09/25 07:10 01/09/25 07:50
Cardiovascular:: Regular rate and rhythm
Respiratory:: Bilateral: CTA
Lung Excursion:: Normal
Abdomen:: Nontender and Soft
Extremity Edema:: +1: Right: and +2: Left:
Owens Catheter: No
[2025-01-09 15:11] VITALS: BP 159/100; PULSE 106
[2025-01-09] MEDS: HEPARIN SC ×2 (15:16→23:13)
[2025-01-09 15:25] VITALS: BP 129/79
[2025-01-09] MEDS: TYLENOL 650 MG PO (23:09)
[2025-01-09 23:14] VITALS: BP 137/83
[2025-01-09] MEDS: FLUSH (NSS) 1 FLUSH IV (23:18)
[2025-01-10] MEDS: VIBRAMYCIN 260 MG IV ×2 (03:41→16:25)
[2025-01-10] MEDS: NSS 1000 IV ×2 (03:43→21:11)
[2025-01-10 07:15] VITALS: BP 128/85
[2025-01-10] MEDS: ANCEF 5 IV ×2 (08:19→16:24)
[2025-01-10] MEDS: BRIVIACT 100 MG PO ×2 (08:20→19:33)
[2025-01-10 08:21] LABS: Blood Urea Nitrogen 21 mg/dl (9-20); Calcium 11.0 mg/dl (8.4-10.2); Carbon Dioxide 20 mmol/L (22-30); Chloride 111 mmol/L (98-107); Estimated Creatinine Clearance 44 ml/min; Glucose 86 mg/dl (70-99); Potassium 4.0 mmol/L (3.5-5.1); Sodium 139 mmol/L (135-145); eGFR 38.19
[2025-01-10] MEDS: HEPARIN SC ×2 (08:21→16:34)
[2025-01-10] MEDS: LIDOCAINE 4% PATCH 1 PATCH TOPICAL (08:21)
--- NOTE | 2025-01-10 11:20 | W.PN.HOSP.TC ---
Today's Communication/Plan
-
see A/P
Assessment / Plan
Assessment / Plan
HPI: 69-year-old M with past medical history of CAD status post CABG, hypertension, seizure disorder, chronic back pain, CKD stage III, BPH; who presented with low blood pressures and 2 weeks of weakness, decreased p.o. intake, and was found to have
RICCI with a creatinine of 3.54 from a baseline of 1.6. Also calcium of 12.4.
He was borderline hypotensive with a systolic blood pressure in the 80s on admission.
Of note, his last seizure was on December 27. After the seizure the patient's Keppra was to be increased to 1000 twice daily he was instead started on brivaracetam 100 mg twice daily although he has not picked up the prescription yet. He denies any
other seizures since the December 27.
A/P:
# Dehydration, hypotension POA, RICCI and hypercalcemia
hold LINUX SOLARIS ADMINISTRATOR valsartan and amlodipine
orthostatic VS equivocal
blood culture were sent on admission, so far negative
CRP mildly elevated at 15
Cont IVF NSS, adjust to 60 cc/hr
Noted TSH WNL at 2.29, random cortisol level at 4.4.
Stim test with poor cortisol response (to 16 at 60 min), ?primary adrenal insufficiency
renal on board, recc to cont IVF for now as SCr improving, to consider fludrocortisone once volume repleted.
Also informed pt and about outpt ebdo eval
# RICCI on CKD stage 3
RICCI suspect from dehydration
SCr 3.5 on admission -> 1.9 today
Cont IVF as above
Cont bladder scan with urinary retention protocol
Kidney/bladder US unrevealing: Findings suggesting chronic medical renal disease, similar to prior. Prostatomegaly.
Renal on board
hold valsartan and amlodipine as above
Follow SPEP and kappa lambda free light chain ratio
# hypercalcemia, suspect from dehydration vs others
Noted 25 vit D level high at 99, Phosphate level high at 5
Follow PTHrP level (was elevated at 5.8 in 2022)
IVF as above
Renal on board
# Chronic lower Lumbar back pain
Per pt, s/p lumbar decompression procedure about 2 months LINUX SOLARIS ADMINISTRATOR
CT lumbar spine ruled out lytic/blastic lesions, but showed Nondisplaced fracture involving L2, with a fracture traversing the posterior-superior margin of the vertebral body, extending to left of midline to involve the junction of the vertebral
body and pedicle, and extending to the right of midline into the right pedicle.
# RLE wound from injury on 12/19 from hitting a table
# Possible RLE cellulitis
appreciate wound RN
arterial and venous US unrevealing
Started empiric Abx Ancef/doxycycline
# Seizure d/o - last seizure 12/27
continue with brivaracetam 100 bid, Valium PRN
DVT PPX - heparin sq
Code status- Full Code
Dispo: Eventual HH per PT recc
DW at bedside
Anticipated Discharge: 24 - 48 hours
Subjective/Interval History
-
Date of Service: January 10, 2025
Objective Data
-
Labs:
Laboratory Results
01/10/25
06:35
Sodium 139
Potassium 4.0
Chloride 111 H
Carbon Dioxide 20 L
BUN 21 H
Creatinine 1.9 H
Glucose 86
Calcium 11.0 H
Vital Signs:
Vital Signs
Temp Pulse Resp BP Pulse Ox
36.7 C 82 20 128/85 95
01/10/25 07:15 01/10/25 07:15 01/10/25 07:15 01/10/25 07:15 01/10/25 07:15
I&O
01/09/25 01/10/25 01/11/25
06:59 06:59 06:59
Intake Total 960 / 960 3190 / 3190
Output Total 800 / 800 600 / 600
Balance 160 / 160 2590 / 2590
Review of Systems
-
History Source: Patient
All other systems: Reviewed and negative
Musculoskeletal: Reports Other (chronic lower lumbar back pain)
Physical Exam
-
General: Well Developed, Well Nourished, No Apparent Distress, Comfortable and Conversant
HEENT: Normocephalic and Atraumatic
Respiratory: Clear to Auscultation and Non Labored Respirations; Negative Wheezes, Rales or Accessory Resp Muscle Use
Cardiac: Regular Rhythm and S1/S2
GI: Soft and Nontender
Musculoskeletal: No Edema
Skin: Other (RLE wound, see wound care note )
Neuro: Awake and Alert
Psych: Calm and Intact Judgement/Insight
Data Reviewed
-
CT Scan: Report Reviewed by me and Discussed with Family
Medical Tests (Nuc Med, Echo etc): Report Reviewed by me (US), Discussed with Patient and Discussed with Family
Labs: Labs Reviewed by me
--- NOTE | 2025-01-10 14:16 | W.PN.NEPH.PH ---
Today's Communication / Plan
-
Recheck stim test
Assessment/Plan
-
Impression:
Weakness/Hypotension
Acute kidney injury (3.5)
Hypercalcemia (12.4)
CKD stage III with baseline creatinine 1.6
History of seizure disorder
History of coronary artery disease with previous CABG
Chronic back pain
RLE wound from injury on 12/19 from hitting a table
Plan:
RICCI/Hypercalcemia:
- Likely prerenal he mediated in setting of valsartan administration with hypotension
- Withholding antihypertensives and providing isotonic saline
- RICCI could also be precipitated by hypercalcemia
- Hypercalcemia workup in progress (will add PTH RP)(pth, vitamin D, spep)TSH
- Narrow anion gap of 6 concerning for dysproteinemia process, obtain SPEP and kappa lambda free light chain ratio
-
- Kidney and bladder ultrasound: Reviewed without hydronephrosis but notable for chronic kidney disease changes
-Urinalysis reviewed 2+ blood 1 plus albumin, 200 mg of proteinuria urine protein to creatinine ratio
-Of note cortisol level was relatively low at only 4.4 in setting of hypotension, question adrenal insufficiency,
cortical stim test= baseline 2.3/30 minutes 13.2/60 minutes 16.1= low initial baseline less than 3 consistent with adrenal insufficiency though the response at 30 and 60 marginal
Blood pressure improved with saline and creatinine improved= at this time I would continue normal saline for the time being and will consider fludrocortisone once volume repleted. Will consider repeat test as well
- Blood cultures re: right lower extremity wound negative to date.
Recheck stim test
Ultimately would need endocrine evaluation as discussed with the patient and his son at bedside
-
-
Date of Service: January 10, 2025
CC / HPI / ROS
-
Chief Complaint:
Acute on chronic kidney disease
History of Present Illness:
Hypotension with acute kidney injury on chronic kidney disease with right lower extremity wound and weight loss over 2-week.
Review of Systems:
No chest pain or shortness of breath
Labs
-
Labs:
WBC 7.6 10^3/uL (4.8-10.8) 01/08/25 09:31
RBC 4.85 10^6/uL (4.70-6.10) 01/08/25 09:31
Hgb 14.8 g/dL (13.0-18.0) 01/08/25 09:31
Hct 42.7 % (39.0-52.0) 01/08/25 09:31
Plt Count 303 10^3/uL (130-400) 01/08/25 09:31
Sodium 139 mmol/L (135-145) 01/10/25 06:35
Potassium 4.0 mmol/L (3.5-5.1) 01/10/25 06:35
Chloride 111 mmol/L (98-107) H 01/10/25 06:35
Carbon Dioxide 20 mmol/L (22-30) L 01/10/25 06:35
BUN 21 mg/dl (9-20) H 01/10/25 06:35
Creatinine 1.9 mg/dL (0.7-1.3) H 01/10/25 06:35
eGFR 38.19 01/10/25 06:35
Glucose 86 mg/dl (70-99) 01/10/25 06:35
Calcium 11.0 mg/dl (8.4-10.2) H 01/10/25 06:35
Phosphorus 5.0 mg/dl (2.5-4.5) H 01/08/25 09:31
Hkz-D-Muoaodqvpwa Pept 281 pg/ml 01/07/25 20:07
Albumin 3.4 g/dl (3.5-5.0) L 01/07/25 20:07
Physical Exam
-
Vital Signs:
Vital Signs
Temp Pulse Resp BP Pulse Ox
98.0 F 82 20 128/85 95
01/10/25 07:15 01/10/25 07:15 01/10/25 07:15 01/10/25 07:15 01/10/25 07:15
Cardiovascular:: Regular rate and rhythm
Respiratory:: Bilateral: CTA
Lung Excursion:: Normal
Abdomen:: Nontender and Soft
Extremity Edema:: +1: Right: and +2: Left:
Owens Catheter: No
[2025-01-10 15:35] VITALS: BP 150/99
[2025-01-10 22:48] VITALS: BP 149/98
[2025-01-11] MEDS: HEPARIN SC ×4 (00:31→15:31)
[2025-01-11] MEDS: ANCEF 5 IV ×3 (00:32→15:21)
[2025-01-11] MEDS: VIBRAMYCIN 260 MG IV (03:16)
[2025-01-11 06:59] LABS: Free Kappa Light Chains,Quant 29.84 mg/L (3.30-19.40); Free Lambda Light Chains,Quant 30.05 mg/L (5.71-26.30); Kappa/Lambda Fr Light Ratio 0.99 (0.26-1.65)
[2025-01-11 07:47] VITALS: BP 130/97
[2025-01-11] MEDS: CORTROSYN 0.25 MG IV (08:56)
[2025-01-11 08:58] LABS: Blood Urea Nitrogen 14 mg/dl (9-20); Calcium 10.9 mg/dl (8.4-10.2); Carbon Dioxide 19 mmol/L (22-30); Chloride 111 mmol/L (98-107); Estimated Creatinine Clearance 52 ml/min; Glucose 76 mg/dl (70-99); Potassium 3.8 mmol/L (3.5-5.1); Sodium 138 mmol/L (135-145); eGFR 46.93
[2025-01-11] MEDS: NSS (PRESERVATIVE FREE) 1 ML IV (09:02)
[2025-01-11 09:31] LABS: ACTH Stim Cortisol 0 Min 4.2 ug/dl
[2025-01-11] MEDS: BRIVIACT 100 MG PO ×2 (09:42→20:25)
[2025-01-11] MEDS: LIDOCAINE 4% PATCH TOPICAL (09:45)
[2025-01-11] MEDS: TORADOL 15 MG IV (10:10)
[2025-01-11 10:32] LABS: ACTH Stim Cortisol 30 Min 17.3 ug/dl
[2025-01-11 11:19] LABS: ACTH Stim Cortisol 60 Min 20.3 ug/dl
--- NOTE | 2025-01-11 12:03 | W.PN.HOSP.TC ---
Today's Communication/Plan
-
Stop Toradol - No NSAIDS
Cont IVF
Monitor renal function
f/u SPEP although K/L Light chain Ratio WNL
F/u Renal recs
Cont abx
Assessment / Plan
Assessment / Plan
HPI: 69-year-old M with past medical history of CAD status post CABG, hypertension, seizure disorder, chronic back pain, CKD stage III, BPH; who presented with low blood pressures and 2 weeks of weakness, decreased p.o. intake, and was found to have
RICCI with a creatinine of 3.54 from a baseline of 1.6. Also calcium of 12.4.
He was borderline hypotensive with a systolic blood pressure in the 80s on admission.
Of note, his last seizure was on December 27. After the seizure the patient's Keppra was to be increased to 1000 twice daily he was instead started on brivaracetam 100 mg twice daily although he has not picked up the prescription yet. He denies any
other seizures since the December 27.
A/P:
# Dehydration, hypotension POA, RICCI and hypercalcemia
May have precipitated with valsartan administration hypertension; kappa lambda free light chain ratio WNL
Hold ELECTRICIAN valsartan and amlodipine
orthostatic VS equivocal
blood culture were sent on admission, so far negative
CRP mildly elevated at 15
Cont IVF NSS, adjust to 60 cc/hr�improving
Noted TSH WNL at 2.29, random cortisol level at 4.4.
Stim test with poor cortisol response (to 16 at 60 min), ?primary adrenal insufficiency�will benefit from endocrinology outpatient eval
renal on board, recc to cont IVF for now as SCr improving, to consider fludrocortisone once volume repleted.
Also informed pt and about outpt endo eval
Follow-up SPEP although K/L Ratio WNL
# RICCI on CKD stage 3
RICCI suspect from dehydration
SCr 3.5 on admission -> 1.9 today
Cont IVF as above
Cont bladder scan with urinary retention protocol
Kidney/bladder US unrevealing: Findings suggesting chronic medical renal disease, similar to prior. Prostatomegaly.
Renal on board
hold valsartan and amlodipine as above
Follow SPEP; Bel-[place] Lambda Ratio WNL
DCed toradol - avoid nephrotoxic agents
# Chronic lower Lumbar back pain
Per pt, s/p lumbar decompression procedure about [address] lumbar spine ruled out lytic/blastic lesions, but showed Nondisplaced fracture involving L2, with a fracture traversing the posterior-superior margin of the vertebral body, extending to left of midline to involve the junction of the vertebral
body and pedicle, and extending to the right of midline into the right pedicle.
-PT/OT
# RLE wound from injury on 12/19 from hitting a table
# Possible RLE cellulitis
appreciate wound RN
arterial and venous US unrevealing
Cont Cefazolin, Doxy - 5- 7 day course
# Seizure d/o - last seizure 12/27
continue with brivaracetam 100 bid, Valium PRN
DVT PPX - heparin sq
Code status- Full Code
Dispo: Eventual HH per PT recc
Anticipated Discharge: 24 - 48 hours
Subjective/Interval History
-
Date of Service: January 11, 2025
No acute events overnight
Objective Data
-
Labs:
Laboratory Results
01/11/25
08:15
Sodium 138
Potassium 3.8
Chloride 111 H
Carbon Dioxide 19 L
BUN 14
Creatinine 1.6 H
Glucose 76
Calcium 10.9 H
Vital Signs:
Vital Signs
Temp Pulse Resp BP Pulse Ox
97.7 F 83 15 130/97 96
01/11/25 07:47 01/11/25 07:47 01/11/25 07:47 01/11/25 07:47 01/11/25 09:30
I&O
01/10/25 01/11/25 01/12/25
06:59 06:59 06:59
Intake Total 3190 / 3190 1400 / 1400
Output Total 600 / 600 700 / 700
Balance 2590 / 2590 700 / 700
Review of Systems
-
History Source: Patient
All other systems: Reviewed and negative
Musculoskeletal: Reports Other (chronic lower lumbar back pain)
Physical Exam
-
General: Well Developed, Well Nourished, No Apparent Distress, Comfortable and Conversant
HEENT: Normocephalic and Atraumatic
Respiratory: Clear to Auscultation and Non Labored Respirations; Negative Wheezes, Rales or Accessory Resp Muscle Use
Cardiac: Regular Rhythm and S1/S2
GI: Soft and Nontender
Musculoskeletal: No Edema
Skin: Other (RLE wound, see wound care note )
Neuro: Awake and Alert
Psych: Calm and Intact Judgement/Insight
Data Reviewed
-
CT Scan: Report Reviewed by me and Discussed with Family
Ultrasound: Report Reviewed by me
Medical Tests (Nuc Med, Echo etc): Report Reviewed by me (US)
Labs: Labs Reviewed by me
[2025-01-11] MEDS: NSS 1000 IV (14:40)
[2025-01-11 15:18] VITALS: BP 146/100
[2025-01-11 15:19] VITALS: BP 153/108
[2025-01-11 15:20] VITALS: BP 158/100
--- NOTE | 2025-01-11 15:23 | W.PN.NEPH.PH ---
Today's Communication / Plan
-
Start hydrocortisone 5 mg
Assessment/Plan
-
Impression:
Weakness/Hypotension
Acute kidney injury (3.5)
Hypercalcemia (12.4)
CKD stage III with baseline creatinine 1.6
History of seizure disorder
History of coronary artery disease with previous CABG
Chronic back pain
RLE wound from injury on 12/19 from hitting a table
Plan:
RICCI/Hypercalcemia:
- Likely prerenal he mediated in setting of valsartan administration with hypotension
- Withholding antihypertensives and providing isotonic saline
- RICCI could also be precipitated by hypercalcemia
- Hypercalcemia workup in progress (will add PTH RP)(pth, vitamin D, spep)TSH
- Narrow anion gap of 6 concerning for dysproteinemia process, obtain SPEP and kappa lambda free light chain ratio
-
- Kidney and bladder ultrasound: Reviewed without hydronephrosis but notable for chronic kidney disease changes
-Urinalysis reviewed 2+ blood 1 plus albumin, 200 mg of proteinuria urine protein to creatinine ratio
-Of note cortisol level was relatively low at only 4.4 in setting of hypotension, question adrenal insufficiency,
cortical stim test= baseline 2.3, 30 minutes 13.2, 60 minutes 16.1= low initial baseline less than 3 consistent with adrenal insufficiency though the response at 30 and 60 marginal
Repeat stim test shows baseline 4.2, 17.3 at 30 minutes, 20.3 at 60 minutes
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
Etiology unknown
Will start very low-dose hydrocortisone but ultimately needs to see decator operator
Discussed with the daughter at bedside
-
-
Date of Service: January 11, 2025
CC / HPI / ROS
-
Chief Complaint:
Acute on chronic kidney disease
History of Present Illness:
Hypotension with acute kidney injury on chronic kidney disease with right lower extremity wound and weight loss over 2-week.
Review of Systems:
No chest pain or shortness of breath
Labs
-
Labs:
WBC 7.6 10^3/uL (4.8-10.8) 01/08/25 09:31
RBC 4.85 10^6/uL (4.70-6.10) 01/08/25 09:31
Hgb 14.8 g/dL (13.0-18.0) 01/08/25 09:31
Hct 42.7 % (39.0-52.0) 01/08/25 09:31
Plt Count 303 10^3/uL (130-400) 01/08/25 09:31
Sodium 138 mmol/L (135-145) 01/11/25 08:15
Potassium 3.8 mmol/L (3.5-5.1) 01/11/25 08:15
Chloride 111 mmol/L (98-107) H 01/11/25 08:15
Carbon Dioxide 19 mmol/L (22-30) L 01/11/25 08:15
BUN 14 mg/dl (9-20) 01/11/25 08:15
Creatinine 1.6 mg/dL (0.7-1.3) H 01/11/25 08:15
eGFR 46.93 01/11/25 08:15
Glucose 76 mg/dl (70-99) 01/11/25 08:15
Calcium 10.9 mg/dl (8.4-10.2) H 01/11/25 08:15
Phosphorus 5.0 mg/dl (2.5-4.5) H 01/08/25 09:31
Zie-G-Fquxlntzxog Pept 281 pg/ml 01/07/25 20:07
Albumin 3.4 g/dl (3.5-5.0) L 01/07/25 20:07
Physical Exam
-
Vital Signs:
Vital Signs
Temp Pulse Resp BP Pulse Ox
97.7 F 100 16 158/100 98
01/11/25 15:18 01/11/25 15:20 01/11/25 15:18 01/11/25 15:20 01/11/25 15:18
Cardiovascular:: Regular rate and rhythm
Respiratory:: Bilateral: CTA
Lung Excursion:: Normal
Abdomen:: Nontender and Soft
Extremity Edema:: +1: Right: and +2: Left:
Owens Catheter: No
--- NOTE | 2025-01-11 16:03 | PTCARENOTE ---
Patients diastolic throughout the shift was noticed to be over 100. Dr. Gibson notified. If patients diastolic becomes 110 DrImelda will decide on treatment
[2025-01-11] MEDS: VIBRAMYCIN 100 MG PO (17:13)
[2025-01-11] MEDS: TYLENOL 650 MG PO (17:13)
[2025-01-11 23:11] VITALS: BP 147/93
[2025-01-12] MEDS: ANCEF 5 IV ×4 (00:50→23:33)
[2025-01-12] MEDS: HEPARIN SC ×4 (00:54→23:32)
[2025-01-12] MEDS: NSS 1000 IV ×2 (04:24→22:20)
[2025-01-12 07:05] VITALS: BP 151/102
[2025-01-12 08:47] LABS: Hematocrit 39.5 % (39.0-52.0); Hemoglobin 13.6 g/dL (13.0-18.0); Mean Corp Hgb Conc. 34.4 g/dL (33.0-37.0); Mean Corpuscular Volume 88.0 fL (80.0-94.0); Platelet Count 286 10^3/uL (130-400); Red Cell Dist. Width 13.6 % (11.5-14.5)
[2025-01-12] MEDS: VIBRAMYCIN 100 MG PO ×2 (08:51→20:26)
[2025-01-12] MEDS: CORTEF 5 MG PO (08:51)
[2025-01-12] MEDS: BRIVIACT 100 MG PO ×2 (08:51→20:08)
[2025-01-12] MEDS: LIDOCAINE 4% PATCH TOPICAL (08:54)
[2025-01-12 09:41] LABS: ALT (SGPT) < 10 U/L (0-50); AST (SGOT) 26 U/L (17-59); Albumin 3.6 g/dl (3.5-5.0); Alkaline Phosphatase 70 U/L (38-126); Blood Urea Nitrogen 13 mg/dl (9-20); Calcium 10.6 mg/dl (8.4-10.2); Carbon Dioxide 20 mmol/L (22-30); Chloride 111 mmol/L (98-107); Estimated Creatinine Clearance 60 ml/min; Glucose 73 mg/dl (70-99); Potassium 3.8 mmol/L (3.5-5.1); Sodium 138 mmol/L (135-145); Total Protein 5.8 g/dl (6.3-8.2); eGFR 55.09
[2025-01-12 11:32] VITALS: BP 158/103; BP 169/110; BP 170/112; PULSE 84; PULSE 87; PULSE 98
[2025-01-12] MEDS: PROCARDIA XL (EXTENDED RELEASE) 30 MG PO (12:09)
--- NOTE | 2025-01-12 12:20 | W.PN.NEPH.PH ---
Today's Communication / Plan
-
follow BMP
Assessment/Plan
-
Impression:
Weakness/Hypotension
Acute kidney injury (3.5)
Hypercalcemia (12.4)
CKD stage III with baseline creatinine 1.6
History of seizure disorder
History of coronary artery disease with previous CABG
Chronic back pain
RLE wound from injury on 12/19 from hitting a table
Plan:
continue NSS
follow BMP
check 1,25 dihydroxyVitD
check ISAIAH
d/c Hydrocortisone
can restart ARB on dc
-
-
Date of Service: January 12, 2025
CC / HPI / ROS
-
Chief Complaint:
Acute on chronic kidney disease
History of Present Illness:
Hypotension with acute kidney injury on chronic kidney disease with right lower extremity wound and weight loss over 2-week.
Calcium stable 10.6
Cr better at 1.4
BP stable high
Review of Systems:
No chest pain or shortness of breath
Labs
-
Labs:
WBC 7.4 10^3/uL (4.8-10.8) 01/12/25 07:56
RBC 4.49 10^6/uL (4.70-6.10) L 01/12/25 07:56
Hgb 13.6 g/dL (13.0-18.0) 01/12/25 07:56
Hct 39.5 % (39.0-52.0) 01/12/25 07:56
Plt Count 286 10^3/uL (130-400) 01/12/25 07:56
Sodium 138 mmol/L (135-145) 01/12/25 07:56
Potassium 3.8 mmol/L (3.5-5.1) 01/12/25 07:56
Chloride 111 mmol/L (98-107) H 07/28/25 07:56
Carbon Dioxide 20 mmol/L (22-30) L 01/12/25 07:56
BUN 13 mg/dl (9-20) 01/12/25 07:56
Creatinine 1.4 mg/dL (0.7-1.3) H 01/12/25 07:56
eGFR 55.09 01/12/25 07:56
Glucose 73 mg/dl (70-99) 01/12/25 07:56
Calcium 10.6 mg/dl (8.4-10.2) H 01/12/25 07:56
Phosphorus 5.0 mg/dl (2.5-4.5) H 01/08/25 09:31
Oby-O-Nszhouomsru Pept 281 pg/ml 01/07/25 20:07
Albumin 3.6 g/dl (3.5-5.0) 01/12/25 07:56
Physical Exam
-
Vital Signs:
Vital Signs
Temp Pulse Resp BP Pulse Ox
97.5 F 96 18 170/112 97
01/12/25 07:05 01/12/25 07:05 01/12/25 07:05 01/12/25 12:09 01/12/25 08:55
Cardiovascular:: Regular rate and rhythm
Respiratory:: Bilateral: Coarse
Lung Excursion:: Normal
Abdomen:: Nontender and Soft
Bowel Sounds:: Normal
Extremity Edema:: None: Bilateral:
--- NOTE | 2025-01-12 13:15 | CM ---
Patient to return to home at discharge, physical therapy are recommending home health, major case detective offered patient home health services at discharge and patient declined.
Plan; Home no needs
--- NOTE | 2025-01-12 13:25 | W.PN.HOSP.TC ---
Today's Communication/Plan
-
Cont NSS
Monitor Calcium, BMP
F/u 1,25 dihydroxy VitD
F/u ISAIAH
Abx
Assessment / Plan
Assessment / Plan
HPI: 69-year-old M with past medical history of CAD status post CABG, hypertension, seizure disorder, chronic back pain, CKD stage III, BPH; who presented with low blood pressures and 2 weeks of weakness, decreased p.o. intake, and was found to have
RICCI with a creatinine of 3.54 from a baseline of 1.6. Also calcium of 12.4.
He was borderline hypotensive with a systolic blood pressure in the 80s on admission.
Of note, his last seizure was on December 27. After the seizure the patient's Keppra was to be increased to 1000 twice daily he was instead started on brivaracetam 100 mg twice daily although he has not picked up the prescription yet. He denies any
other seizures since the December 27.
A/P:
# Dehydration, hypotension POA, RICCI and hypercalcemia
May have precipitated with valsartan administration hypertension; kappa lambda free light chain ratio WNL
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
orthostatic VS equivocal
blood culture were sent on admission, so far negative
CRP mildly elevated at 15
Cont IVF NSS,
check 1,25 dihydroxyVitD
check ISAIAH
Noted TSH WNL at 2.29, random cortisol level at 4.4.
Stim test with poor cortisol response (to 16 at 60 min), ?primary adrenal insufficiency�will benefit from endocrinology outpatient eval
renal on board, recc to cont IVF for now as SCr improving, to consider fludrocortisone once volume repleted.
Received 1 dose 5mg hydrocortisone
Also informed pt and about outpt endo eval
Follow-up SPEP although K/L Ratio WNL
# RICCI on CKD stage 3
RICCI suspect from dehydration
SCr 3.5 on admission -> 1.4 today
Cont IVF as above
Cont bladder scan with urinary retention protocol
Kidney/bladder US unrevealing: Findings suggesting chronic medical renal disease, similar to prior. Prostatomegaly.
Renal on board
hold valsartan and amlodipine as above; Can restart ARB on DC
Follow SPEP; Rand Lambda Ratio WNL
DCed toradol - avoid nephrotoxic agents
# Chronic lower Lumbar back pain
Per pt, s/p lumbar decompression procedure about 2 months PLASTICS FACTORY WORKER
CT lumbar spine ruled out lytic/blastic lesions, but showed Nondisplaced fracture involving L2, with a fracture traversing the posterior-superior margin of the vertebral body, extending to left of midline to involve the junction of the vertebral
body and pedicle, and extending to the right of midline into the right pedicle.
-PT/OT
# RLE wound from injury on 12/19 from hitting a table
# Possible RLE cellulitis
appreciate wound RN
arterial and venous US unrevealing
Cont Cefazolin, Doxy - 5- 7 day course
# Seizure d/o - last seizure 12/27
continue with brivaracetam 100 bid, Valium PRN
DVT PPX - heparin sq
Code status- Full Code
Dispo: Eventual HH per PT recc
Anticipated Discharge: 24 - 48 hours
Subjective/Interval History
-
Date of Service: January 12, 2025
No events overnight
Objective Data
-
Labs:
Laboratory Results
01/12/25
07:56
WBC 7.4
Hgb 13.6
Hct 39.5
Plt Count 286
Sodium 138
Potassium 3.8
Chloride 111 H
Carbon Dioxide 20 L
BUN 13
Creatinine 1.4 H
Glucose 73
Calcium 10.6 H
Total Bilirubin 0.6
AST 26
ALT < 10
Alkaline Phosphatase 70
Vital Signs:
Vital Signs
Temp Pulse Resp BP Pulse Ox
97.5 F 96 18 170/112 97
01/12/25 07:05 01/12/25 07:05 01/12/25 07:05 01/12/25 12:09 01/12/25 08:55
I&O
01/11/25 01/12/25 01/13/25
06:59 06:59 06:59
Intake Total 1400 / 1400 1460 / 1460
Output Total 700 / 700 1000 / 1000
Balance 700 / 700 460 / 460
Review of Systems
-
History Source: Patient
All other systems: Not reviewed unless documented
Physical Exam
-
General: Well Developed, Well Nourished, No Apparent Distress, Comfortable and Conversant
HEENT: Normocephalic and Atraumatic
Respiratory: Clear to Auscultation and Non Labored Respirations; Negative Wheezes, Rales or Accessory Resp Muscle Use
Cardiac: Regular Rhythm and S1/S2
GI: Soft and Nontender
Musculoskeletal: No Edema
Skin: Other (RLE wound, see wound care note )
Neuro: Awake and Alert
Psych: Calm and Intact Judgement/Insight
Data Reviewed
-
CT Scan: Report Reviewed by me and Discussed with Family
Ultrasound: Report Reviewed by me
Medical Tests (Nuc Med, Echo etc): Report Reviewed by me (US)
Labs: Labs Reviewed by me
[2025-01-12 15:41] VITALS: BP 147/97
[2025-01-12 20:29] LABS: Albumin 3.50 g/dL (3.75-5.01); SPEP IFE Reflex IFE Done; Total Protein-Electrophoresis 6.0 g/dL (6.3-8.2)
[2025-01-12] MEDS: VALIUM 5 MG PO (22:23)
[2025-01-12] MEDS: TYLENOL 650 MG PO (22:24)
[2025-01-12 23:38] VITALS: BP 141/91
[2025-01-13] MEDS: TYLENOL 650 MG PO (03:16)
[2025-01-13 07:20] VITALS: BP 150/106; BP 156/103; BP 162/116; PULSE 102; PULSE 93; PULSE 97
[2025-01-13 07:33] LABS: Hematocrit 42.3 % (39.0-52.0); Hemoglobin 14.8 g/dL (13.0-18.0); Mean Corp Hgb Conc. 35.0 g/dL (33.0-37.0); Mean Corpuscular Volume 86.9 fL (80.0-94.0); Platelet Count 264 10^3/uL (130-400); Red Cell Dist. Width 13.7 % (11.5-14.5)
[2025-01-13] MEDS: HEPARIN SC ×2 (08:41→16:58)
[2025-01-13] MEDS: LIDOCAINE 4% PATCH TOPICAL (08:41)
[2025-01-13] MEDS: ANCEF 5 IV (08:41)
[2025-01-13] MEDS: VIBRAMYCIN 100 MG PO (08:42)
[2025-01-13] MEDS: PROCARDIA XL (EXTENDED RELEASE) 30 MG PO (08:42)
[2025-01-13] MEDS: BRIVIACT 100 MG PO (08:49)
[2025-01-13 09:41] LABS: ALT (SGPT) < 10 U/L (0-50); AST (SGOT) 27 U/L (17-59); Albumin 3.6 g/dl (3.5-5.0); Alkaline Phosphatase 60 U/L (38-126); Blood Urea Nitrogen 13 mg/dl (9-20); Calcium 10.4 mg/dl (8.4-10.2); Carbon Dioxide 20 mmol/L (22-30); Chloride 110 mmol/L (98-107); Estimated Creatinine Clearance 69 ml/min; Glucose 80 mg/dl (70-99); Potassium 3.7 mmol/L (3.5-5.1); Sodium 138 mmol/L (135-145); Total Protein 5.6 g/dl (6.3-8.2); eGFR > 60.00
--- NOTE | 2025-01-13 12:00 | CM ---
Home when stable, no needs.
Plan; Home no needs.
[2025-01-13 12:21] VITALS: BP 131/92
--- NOTE | 2025-01-13 13:22 | W.PN.HOSP.TC ---
Addendum entered and electronically signed by Jose Alfredo Gibson MD 01/13/25 17:13:
[id number]
Addendum entered and electronically signed by Jose Alfredo Gibson MD 01/13/25 15:38:
Cleared by nephro; F/u labs outpatient; F/u Ca in 1 week with nephrology; DC on nifedipine. Wound Care. Abx course. F/u PCP, Nephro outpt
More than 30 minutes spent in discharge including
Final examination of the patient
Summarizing hospital stay
Instructions for continuing care to all relevant caregivers
Preparation of discharge records, prescriptions, and referral forms
Total time spent (in minutes): 36
Original Note:
Today's Communication/Plan
-
Stop fluids, monitor renal function, calcium
Continue nifedipine, plan on adding ARB on discharge
Continue antibiotics
Follow-up nephrology recommendations
Assessment / Plan
Assessment / Plan
HPI: 69-year-old M with past medical history of CAD status post CABG, hypertension, seizure disorder, chronic back pain, CKD stage III, BPH; who presented with low blood pressures and 2 weeks of weakness, decreased p.o. intake, and was found to have
RICCI with a creatinine of 3.54 from a baseline of 1.6. Also calcium of 12.4.
He was borderline hypotensive with a systolic blood pressure in the 80s on admission.
Of note, his last seizure was on December 27. After the seizure the patient's Keppra was to be increased to 1000 twice daily he was instead started on brivaracetam 100 mg twice daily although he has not picked up the prescription yet. He denies any
other seizures since the December 27.
A/P:
# Dehydration, hypotension POA, RICCI and hypercalcemia
May have precipitated with valsartan administration hypertension; kappa lambda free light chain ratio WNL
Hold [employer] valsartan and amlodipine
orthostatic VS equivocal
blood culture were sent on admission, so far negative
CRP mildly elevated at 15
Stop IVF NSS - monitor Ca
check 1,25 dihydroxyVitD
check ISAIAH
Noted TSH WNL at 2.29, random cortisol level at 4.4.
Stim test with poor cortisol response (to 16 at 60 min), ?primary adrenal insufficiency�will benefit from endocrinology outpatient eval
renal on board, recc to cont IVF for now as SCr improving, to consider fludrocortisone once volume repleted.
Received 1 dose 5mg hydrocortisone
Also informed pt and about outpt endo eval
Follow-up SPEP although K/L Ratio WNL
# RICCI on CKD stage 3
RICCI suspect from dehydration
SCr 3.5 on admission -> 1.2 today
s/p IVF
Cont bladder scan with urinary retention protocol
Kidney/bladder US unrevealing: Findings suggesting chronic medical renal disease, similar to prior. Prostatomegaly.
Renal on board
hold valsartan and amlodipine as above; Can restart ARB on DC
Follow SPEP; [place] Lambda Ratio WNL
DCed toradol - avoid nephrotoxic agents
BP control
#Essential Hypertension
-started nifedipine
� Restart ARB on discharge
# Chronic lower Lumbar back pain
Per pt, s/p lumbar decompression procedure about 2 months [employer]
CT lumbar spine ruled out lytic/blastic lesions, but showed Nondisplaced fracture involving L2, with a fracture traversing the posterior-superior margin of the vertebral body, extending to left of midline to involve the junction of the vertebral
body and pedicle, and extending to the right of midline into the right pedicle.
-PT/OT
# RLE wound from injury on 12/19 from hitting a table
# Possible RLE cellulitis
appreciate wound RN
arterial and venous US unrevealing
Cont Cefazolin(D5), Doxy (D3) - 5- 7 day course
# Seizure d/o - last seizure 12/27
continue with brivaracetam 100 bid, Valium PRN
DVT PPX - heparin sq
Code status- Full Code
Dispo: Eventual HH per PT recc
Anticipated Discharge: Within 24 hours
Subjective/Interval History
-
Date of Service: January 13, 2025
no acute events overnight
Objective Data
-
Labs:
Laboratory Results
01/13/25 01/13/25
06:12 08:35
WBC 9.0
Hgb 14.8
Hct 42.3
Plt Count 264
Sodium Cancelled 138
Potassium Cancelled 3.7
Chloride Cancelled 110 H
Carbon Dioxide Cancelled 20 L
BUN Cancelled 13
Creatinine Cancelled 1.2
Glucose Cancelled 80
Calcium Cancelled 10.4 H
Total Bilirubin Cancelled 0.8
AST Cancelled 27
ALT Cancelled < 10
Alkaline Phosphatase Cancelled 60
Vital Signs:
Vital Signs
Temp Pulse Resp BP Pulse Ox
98.4 F 95 16 131/92 99
01/13/25 12:21 01/13/25 12:21 01/13/25 12:21 01/13/25 12:21 01/13/25 12:21
I&O
01/12/25 01/13/25 01/14/25
06:59 06:59 06:59
Intake Total 1460 / 1460 2240 / 2240
Output Total 1000 / 1000 700 / 700
Balance 460 / 460 1540 / 1540
Review of Systems
-
History Source: Patient
All other systems: Not reviewed unless documented
Physical Exam
-
General: Well Developed, Well Nourished, No Apparent Distress, Comfortable and Conversant
HEENT: Normocephalic and Atraumatic
Respiratory: Clear to Auscultation and Non Labored Respirations; Negative Wheezes, Rales or Accessory Resp Muscle Use
Cardiac: Regular Rhythm and S1/S2
GI: Soft and Nontender
Musculoskeletal: No Edema
Skin: Other (RLE wound, see wound care note )
Neuro: Awake and Alert
Psych: Calm and Intact Judgement/Insight
Data Reviewed
-
CT Scan: Report Reviewed by me
Ultrasound: Report Reviewed by me
Medical Tests (Nuc Med, Echo etc): Report Reviewed by me (US)
Labs: Labs Reviewed by me
[2025-01-13 13:53] VITALS: BP 141/100; PULSE 100; O2SAT 98
[2025-01-13] MEDS: NSS IV (14:44)
--- NOTE | 2025-01-13 14:53 | W.PN.NEPH.PH ---
Today's Communication / Plan
-
dc
Assessment/Plan
-
Impression:
Weakness/Hypotension
Acute kidney injury (3.5)
Hypercalcemia (12.4)
CKD stage III with baseline creatinine 1.6
History of seizure disorder
History of coronary artery disease with previous CABG
Chronic back pain
RLE wound from injury on 12/19 from hitting a table
Plan:
cap IVF
follow BMP
await 1,25 dihydroxyVitD
await ISAIAH
no ARB on dc
d/w and pt
-
-
Date of Service: January 13, 2025
CC / HPI / ROS
-
Chief Complaint:
Acute on chronic kidney disease
History of Present Illness:
Hypotension with acute kidney injury on chronic kidney disease with right lower extremity wound and weight loss over 2-week.
Calcium stable 10.4
Cr better at 1.2
BP stable not low
Review of Systems:
No chest pain or shortness of breath
Labs
-
Labs:
WBC 9.0 10^3/uL (4.8-10.8) 01/13/25 06:12
RBC 4.87 10^6/uL (4.70-6.10) 01/13/25 06:12
Hgb 14.8 g/dL (13.0-18.0) 01/13/25 06:12
Hct 42.3 % (39.0-52.0) 01/13/25 06:12
Plt Count 264 10^3/uL (130-400) 01/13/25 06:12
Sodium 138 mmol/L (135-145) 01/13/25 08:35
Potassium 3.7 mmol/L (3.5-5.1) 01/13/25 08:35
Chloride 110 mmol/L (98-107) H 01/13/25 08:35
Carbon Dioxide 20 mmol/L (22-30) L 01/13/25 08:35
BUN 13 mg/dl (9-20) 01/13/25 08:35
Creatinine 1.2 mg/dL (0.7-1.3) 01/13/25 08:35
eGFR > 60.00 01/13/25 08:35
Glucose 80 mg/dl (70-99) 01/13/25 08:35
Calcium 10.4 mg/dl (8.4-10.2) H 01/13/25 08:35
Phosphorus 5.0 mg/dl (2.5-4.5) H 01/08/25 09:31
Fpq-G-Afzszsivvtj Pept 281 pg/ml 01/07/25 20:07
Albumin 3.6 g/dl (3.5-5.0) 01/13/25 08:35
Physical Exam
-
Vital Signs:
Vital Signs
Temp Pulse Resp BP Pulse Ox
98.4 F 95 16 131/92 99
01/13/25 12:21 01/13/25 12:21 01/13/25 12:21 01/13/25 12:21 01/13/25 12:21
Cardiovascular:: Regular rate and rhythm
Respiratory:: Bilateral: Coarse
Lung Excursion:: Normal
Abdomen:: Nontender and Soft
Bowel Sounds:: Normal
Extremity Edema:: +1: Bilateral:
[2025-01-13 15:27] VITALS: BP 135/92
[2025-01-13] MEDS: ANCEF IV (16:56)
--- NOTE | 2025-01-13 17:11 | W.DS.TRANS ---
DC Summary - [employer]
-
Discharge Instructions:
Discharge Diagnosis/Procedures Cellulitis
Acute kidney injury (3.5)
Hypercalcemia (12.4)
CKD stage III with baseline creatinine 1.6
Diet Low Cholesterol,Low Fat
Activity As tolerated
Blood Work Calcium in 1 week with nephrology
Instructions:
Stand-Alone Forms:
Changes to Home Medications: Yes
Discharge Medications:
DC Medications w/original date entered in [facility]
diazepam 5 mg tablet 5 mg PO BIDPRN PRN anxiety 01/07/25
magnesium oxide 400 mg PO HS Supplement 01/07/25
therapeutic multivitamin 1 tab PO NOON Supplement 01/07/25
brivaracetam 50 mg tablet (Briviact) 100 mg (2 x 50 mg) PO BID 30 days #120 tabs 01/13/25
cephalexin 500 mg capsule 500 mg PO QID 2 days #8 caps 01/13/25
doxycycline hyclate 100 mg capsule 100 mg PO BID 3 days #6 caps 01/13/25
nifedipine 30 mg tablet,extended release 30 mg PO DAILY 30 days #30 tabs 01/13/25
Home Medication Changes
brivaracetam 50 mg tablet (Briviact) 100 mg (2 x 50 mg) PO BID 30 days #120 tabs 01/13/25
cephalexin 500 mg capsule 500 mg PO QID 2 days #8 caps 01/13/25
doxycycline hyclate 100 mg capsule 100 mg PO BID 3 days #6 caps 01/13/25
nifedipine 30 mg tablet,extended release 30 mg PO DAILY 30 days #30 tabs 01/13/25
Pending Results: No
[2025-01-17 07:23] LABS: PTH Related Peptide LC-MS/MS 4.3 pmol/L (0.0-2.3)
== END 2025-01-13 17:19 | disposition home or self-care (01) | DRG 644 ==
LOC: 4 WEST ACU 22:19
PROVIDERS: Internal Medicine; Internal Medicine Nephrology; Specialist; ADMITTING PHYSICIAN Internal Medicine; ATTENDING PHYSICIAN Internal Medicine; CONSULT PHYSICIAN Specialist; EMERGENCY PHYSICIAN Emergency Medicine; FAMILY PHYSICIAN Family Medicine
DX: E27.1 Primary adrenocortical insufficiency (principal); E87.1 Hypo-osmolality and hyponatremia; L03.115 Cellulitis of right lower limb; N17.9 Acute kidney failure, unspecified; E86.0 Dehydration; I25.10 Atherosclerotic heart disease of native coronary artery without angina pectoris; I12.9 Hypertensive chronic kidney disease with stage 1 through stage 4 chronic kidney disease, or unspecified chronic kidney disease; N18.30 Chronic kidney disease, stage 3 unspecified; E78.5 Hyperlipidemia, unspecified; D64.9 Anemia, unspecified; E83.52 Hypercalcemia; N40.1 Benign prostatic hyperplasia with lower urinary tract symptoms; R35.0 Frequency of micturition; G89.29 Other chronic pain; I95.9 Hypotension, unspecified; M54.50 Low back pain, unspecified; G40.909 Epilepsy, unspecified, not intractable, without status epilepticus; M10.9 Gout, unspecified; Z79.899 Other long term (current) drug therapy; Z95.1 Presence of aortocoronary bypass graft
CPT/HCPCS: 71045; 72131; 76770; 80048; 80053; 81003; 81015; 82164; 82306; 82533; 82550; 82570; 82607; 82652; 82784; 83519; 83521; 83605; 83735; 83880; 83970; 84100; 84155; 84156; 84165; 84300; 84443; 84484; 85025; 85027; 85610; 85652; 85730; 86140; 86334; 87040; 93005; 93306; 93922; 93925; 93971; 97110; 97116; 97163; 97530; 99291; Q9950

== ENCOUNTER → 2025-01-20 07:55 | Outpatient (REF) | payer MEDICARE, OTHER, SELFPAY | LOC: WOUND 07:55 | PROVIDERS: ATTENDING PHYSICIAN Surgery; FAMILY PHYSICIAN Family Medicine | DX: L97.212 Non-pressure chronic ulcer of right calf with fat layer exposed (principal); G40.009 Localization-related (focal) (partial) idiopathic epilepsy and epileptic syndromes with seizures of localized onset, not intractable, without status epilepticus; G40.909 Epilepsy, unspecified, not intractable, without status epilepticus; G43.009 Migraine without aura, not intractable, without status migrainosus | CPT/HCPCS: 11042; 97597; 97598; 99203 ==

== ENCOUNTER → 2025-01-26 10:29 | Outpatient (REF) | payer MEDICARE, OTHER, SELFPAY | LOC: WOUND 10:29 | PROVIDERS: ATTENDING PHYSICIAN Surgery; FAMILY PHYSICIAN Family Medicine | DX: L97.212 Non-pressure chronic ulcer of right calf with fat layer exposed (principal); G40.009 Localization-related (focal) (partial) idiopathic epilepsy and epileptic syndromes with seizures of localized onset, not intractable, without status epilepticus; G40.909 Epilepsy, unspecified, not intractable, without status epilepticus; G43.009 Migraine without aura, not intractable, without status migrainosus | CPT/HCPCS: 11042 ==

== ENCOUNTER → 2025-02-02 10:26 | Outpatient (REF) | payer MEDICARE, OTHER, SELFPAY | LOC: WOUND 10:26 | PROVIDERS: ATTENDING PHYSICIAN Surgery; FAMILY PHYSICIAN Family Medicine | DX: L97.212 Non-pressure chronic ulcer of right calf with fat layer exposed (principal); G40.009 Localization-related (focal) (partial) idiopathic epilepsy and epileptic syndromes with seizures of localized onset, not intractable, without status epilepticus; G40.909 Epilepsy, unspecified, not intractable, without status epilepticus; G43.009 Migraine without aura, not intractable, without status migrainosus | CPT/HCPCS: 99213 ==

== ENCOUNTER → 2025-02-10 13:22 | Outpatient (REF) | payer MEDICARE, OTHER, SELFPAY | LOC: WOUND 13:22 | PROVIDERS: ATTENDING PHYSICIAN Surgery; FAMILY PHYSICIAN Family Medicine | DX: L97.212 Non-pressure chronic ulcer of right calf with fat layer exposed (principal); G40.009 Localization-related (focal) (partial) idiopathic epilepsy and epileptic syndromes with seizures of localized onset, not intractable, without status epilepticus; G40.909 Epilepsy, unspecified, not intractable, without status epilepticus; G43.009 Migraine without aura, not intractable, without status migrainosus | CPT/HCPCS: 99213 ==

== ENCOUNTER → 2025-02-23 09:02 | Outpatient (REF) | payer MEDICARE, OTHER, SELFPAY | LOC: WOUND 09:02 | PROVIDERS: ATTENDING PHYSICIAN Surgery; FAMILY PHYSICIAN Family Medicine | DX: L97.212 Non-pressure chronic ulcer of right calf with fat layer exposed (principal); G40.009 Localization-related (focal) (partial) idiopathic epilepsy and epileptic syndromes with seizures of localized onset, not intractable, without status epilepticus; G40.909 Epilepsy, unspecified, not intractable, without status epilepticus; G43.009 Migraine without aura, not intractable, without status migrainosus | CPT/HCPCS: 99213 ==

== ENCOUNTER → 2025-03-10 09:26 | Outpatient (REF) | payer MEDICARE, OTHER, SELFPAY | LOC: WOUND 09:26 | PROVIDERS: ATTENDING PHYSICIAN Surgery; FAMILY PHYSICIAN Family Medicine | DX: L97.212 Non-pressure chronic ulcer of right calf with fat layer exposed (principal); G40.009 Localization-related (focal) (partial) idiopathic epilepsy and epileptic syndromes with seizures of localized onset, not intractable, without status epilepticus; G40.909 Epilepsy, unspecified, not intractable, without status epilepticus; G43.009 Migraine without aura, not intractable, without status migrainosus | CPT/HCPCS: 99212 ==

== ENCOUNTER → 2025-03-23 09:09 | Outpatient (REF) | payer MEDICARE, OTHER, SELFPAY ==
--- NOTE | 2025-03-23 10:33 | PTCARENOTE ---
Called in to EEG room after EEG monitoring leads placed. As pt getting ready to leave ., pt was having painful back spasms and varying pain in arms and back spasms. Pt anxious, felt like he was 'in impending doom',stated he had left sided chest
feeling 'achy', unable to rate chest pain. Pt has hx of CABG. Denied SOB, skin warm and dry, pt very anxious. Pt agreed to visit ER. After pt calmed stated he felt better but continues to have back spasms. Transferred to ED 38 via stretcher,
tolerated transfer well, states chest achiness is improved.
== END ==
LOC: EEG 09:09
PROVIDERS: ATTENDING PHYSICIAN Registered Nurse Critical Care Medicine; FAMILY PHYSICIAN Family Medicine
DX: G40.009 Localization-related (focal) (partial) idiopathic epilepsy and epileptic syndromes with seizures of localized onset, not intractable, without status epilepticus (principal)
CPT/HCPCS: 95708

== ENCOUNTER 2025-03-23 16:57 | Observation (INO) | payer MEDICARE, OTHER, SELFPAY ==
[2025-03-23] VITALS (11 sets, daily range): BP systolic 108–162; BP diastolic 66–98; BMI 31.6; BMI 26.3
[2025-03-23 10:55] LABS: Hematocrit 39.4 % (39.0-52.0); Hemoglobin 13.7 g/dL (13.0-18.0); Mean Corp Hgb Conc. 34.8 g/dL (33.0-37.0); Mean Corpuscular Volume 82.1 fL (80.0-94.0); Nucleated Red Blood Cells % 0 % (-); Platelet Count 332 10^3/uL (130-400); Red Cell Dist. Width 12.6 % (11.5-14.5)
[2025-03-23 11:15] LABS: ALT (SGPT) 18 U/L (0-50); AST (SGOT) 28 U/L (17-59); Albumin 4.0 g/dl (3.5-5.0); Alkaline Phosphatase 114 U/L (38-126); Blood Urea Nitrogen 15 mg/dl (9-20); Calcium 10.4 mg/dl (8.4-10.2); Carbon Dioxide 24 mmol/L (22-30); Chloride 100 mmol/L (98-107); Glucose 109 mg/dl (70-99); Potassium 2.8 mmol/L (3.5-5.1); Sodium 138 mmol/L (135-145); Total Protein 6.6 g/dl (6.3-8.2); eGFR 40.75
[2025-03-23 11:25] LABS: Troponin I < 0.012 ng/ml
[2025-03-23] MEDS: PERCOCET 5/325 1 TABLET PO ×2 (11:48→21:41)
--- NOTE | 2025-03-23 13:24 | ED.GENMED ---
History of Present Illness
<Elvia Han PA-C - Last Filed: 03/24/25 11:45>
General
Chief Complaint: Chest Pain
Source: patient and spouse
Exam Limitations: none
Time Seen by Provider: 03/23/25 11:11
Nursing documentation reviewed up to this point in time: agreed with
History of Present Illness
History of Present Illness:
Patient is a 69-year-old male with history CAD s/p CABG, hypertension who presents to the emergency department for evaluation of chest discomfort. Patient states he was in the [facility] having an ambulatory EEG placed when at the end
he had a strange sensation in his left upper chest and felt as if his heart was racing. He describes it as a dull pressure/discomfort. No tearing component. He denies any associated shortness of breath, lightheadedness, diaphoresis, or nausea.
He states the symptoms are not in any way similar to his prior IN leading to CABG.
He has had some worsening swelling in his right lower extremity over the past 2 days. No history of prior blood clots.
Patient has been struggling with chronic lower back pain as well as diffuse joint pain. He is scheduled to see a neurosurgeon to discuss options for his spinal stenosis.
Patient denies any fever, chills, recent vomiting. He is urinating without difficulty.
Past History
<Elvia Han PA-C - Last Filed: 03/24/25 11:45>
Past History
ED Past Medical History: CAD, HTN and Other (Arthritis, hypertension)
ED Past Surgical History: Cardiac (Open heart surgery) and Orthopedic
Social History
Tobacco: Non-smoker
Alcohol: Occasional
Drug: None
Personal:
Living: with family
Employment: Retired
Family History
Family History: CAD
Review of Systems
<Elvia Han PA-C - Last Filed: 03/24/25 11:45>
Review of Systems
Allergies reviewed?: Yes
All Other Systems: ROS reviewed and negative except as documented in HPI and ROS
Phy Exam
<Elvia Han PA-C - Last Filed: 03/24/25 11:45>
Physical Exam
Physical Exam:
Vitals: Patient's vital signs are stable. Afebrile
General: Patient is well appearing, no acute distress
Skin: Warm and dry, no rashes or lesions
Head: Normocephalic, atraumatic. Ambulatory EEG in place.
Eyes: Sclera nonicteric. EOMs intact. No nystagmus.
Throat: Protecting airway
Neck: Normal ROM, no cervical spine tenderness, no meningismus. No JVD
Cardiac: Regular rate and rhythm, no murmurs. No reproducible chest wall tenderness.
Pulm: Normal respiratory effort, no wheezes, rales, rhonchi heard on exam
.
Abdomen: Soft and nontender.
Extremities: Pitting edema of b/l lower extremities R> L with tenderness and mild erythema. 2+ palpable DP pulses.
Neuro: AAOx3. Grossly intact
Psychiatric: Normal affect.
Scores
<Elvia Han PA-C - Last Filed: 03/24/25 11:45>
Heart Score for Chest Pain Patients
STEMI patient?: Not applicable
Course
<Elvia Han PA-C - Last Filed: 03/24/25 11:45>
Orders/Labs/Results
Orders:
Orders
03/23/25 Breakfast
Cholesterol Lowering
At Your Request: Full Participation
Does patient need a safe tray?: No
Cholesterol Lowering: Sodium, 2 Gram
03/23/25 10:27
Electrocardiogram (*1) Urgent
Reason for Study: Chest Pain
EKG- Treatment ONCE
03/23/25 10:41
Complete Blood Count/With Diff Urgent
Comprehensive Metabolic Panel Urgent
Magnesium Urgent
Troponin I Urgent
03/23/25 11:05
Electrocardiogram (*1) Urgent
Reason for Study: Chest Pain
EKG- Treatment ONCE
03/23/25 11:40
Oxycodone/Acetaminophen [Percocet 5/325] 1 tablet PO NOW STA
US Legs, Right [US Periph Venous LOWER Ext RT] Urgent
Comment:
Reason For Exam: RLE swelling
03/23/25 11:41
CR Chest - 2 Views Urgent
Comment:
Reason For Exam: CP
03/23/25 13:07
Bladder Scan- Treatment ONCE
03/23/25 13:19
0.9% Sodium Chloride 1000 ml [Nss] 1,000 ml IV BOLUS
Potassium Chloride [KCl] 40 meq PO NOW STA
03/23/25 13:45
Electrocardiogram (*1) Urgent
Reason for Study: Chest Pain
EKG- Treatment ONCE
03/23/25 14:06
Potassium Chloride [KCl] 40 meq 0.9% Sodium Chloride 250 ml [Nss] 250 ml IV NOW
03/23/25 14:15
Troponin I Urgent
03/23/25 16:23
Admit/Transfer Patient As Directed
Co-Sign Provider:
Level of Care: Observation services
Assign to:: Telemetry
Physician / Group: Chitra Childress
Diagnosis: hypokalemia, chest pain
Reason for Telemetry: Chest Pain syndromes
Date to Stop Telemetry: 03/25/25
Time to Stop Telemetry: 11:00
PRN Pain Medication Management As Directed
May give lesser potent ordered pain med per pt: Yes
preference::
Protocol:: Medication orders for pain may be administered in a
manner that supports deferring to patient preference
when the pt is:
- Requesting an ordered lesser potent pain medication.
Least to most potent pain medications are defined
as: acetaminophen < NSAID < tramadol < opioids
(morphine, oxycodone, hydromorphone).
- Requesting a lesser dose of the same medication IF
ORDERED.
- Requesting a less intrusive route of administration
if both routes are prescribed by the provider (PO <
IV).
03/23/25 16:24
Code Status As Directed
Resuscitation Status: Full Code
03/23/25 17:44
Electrocardiogram (*1) Q3H
Reason for Study: Chest Pain
Comment: at admission and Q3H for total of 3, to be done with each troponin
Diazepam [Valium] 5 mg PO BIDPRN PRN anxiety
Oxycodone/Acetaminophen [Percocet 5/325] 1 tablet PO Q6HPRN PRN severe pains
midazolam [Nayzilam] 5 mg NASAL DAILYPRN PRN
03/23/25 17:44
Activity As Directed
Activity Level: As Tolerated
INT (Intravenous Needle Therapy) As Directed
Comment: maintain peripheral IV access
Intake/ Output As Directed
Frequency: Per unit guidelines
Vital Signs As Directed
Frequency: q4h
Weight As Directed
Frequency: Once
Comment: on admission
Pulse Ox/spot Check [RESP] Routine
Quantity: 1
DX Deep Vein Thrombosis Video Routine
03/23/25 18:24
Glycohemoglobin (HgbA1c) Routine
Troponin I Q3H
Comment: at admit & Q3H for 3 total including ED draws, obtain ECG with each level
03/23/25 18:47
Sumatriptan Succinate [Imitrex] 50 mg PO Q2HPRN PRN
03/23/25 20:00
Brivaracetam [Briviact] 100 mg PO BID
NIFEdipine EXTENDED RELEASE [Procardia Xl (Extended Release)] 30 mg PO BID
03/23/25 22:00
Magnesium Oxide 400 mg PO HS
03/24/25 00:00
Heparin 5,000 units SC Q8
03/24/25 07:36
Basic Metabolic Panel IN AM
Cardiovascular Evaluation IN AM
03/24/25 08:00
Hydrocortisone [Cortef] 10 mg PO DAILY
03/24/25 12:00
Multivitamin [Theragran] 1 tablet PO NOON
03/25/25 11:00
DC Protocol for Telemetry ONCE
Abnormal Lab Results
03/23/25
10:41
Absolute Monos (auto) 1.0 H 10^3/uL
(0.1-0.6)
Monocytes % 10.3 H %
(1.7-9.3)
Potassium 2.8 L mmol/L
(3.5-5.1)
Creatinine 1.8 H mg/dL
(0.7-1.3)
Glucose 109 H mg/dl
(70-99)
Calcium 10.4 H mg/dl
(8.4-10.2)
Magnesium 2.4 H mg/dl
(1.6-2.3)
03/23/25 10:41
03/23/25 10:41
Vital Signs
Initial and Last Documented VS:
Initial Vital Signs
Pulse Resp BP Pulse Ox
88 28 135/82 100
03/23/25 10:28 03/23/25 10:28 03/23/25 10:28 03/23/25 10:28
Last Documented Vital Signs
Temp Pulse Resp BP Pulse Ox
98.7 F 77 18 138/95 95
03/24/25 11:22 03/24/25 11:22 03/24/25 11:22 03/24/25 11:22 03/24/25 11:22
<Srinivas Hui MD - Last Filed: 03/23/25 16:18>
Orders/Labs/Results
Orders:
Orders
03/23/25 Breakfast
Cholesterol Lowering
At Your Request: Full Participation
Does patient need a safe tray?: No
Cholesterol Lowering: Sodium, 2 Gram
03/23/25 10:27
Electrocardiogram (*1) Urgent
Reason for Study: Chest Pain
EKG- Treatment ONCE
03/23/25 10:41
Complete Blood Count/With Diff Urgent
Comprehensive Metabolic Panel Urgent
Magnesium Urgent
Troponin I Urgent
03/23/25 11:05
Electrocardiogram (*1) Urgent
Reason for Study: Chest Pain
EKG- Treatment ONCE
03/23/25 11:40
Oxycodone/Acetaminophen [Percocet 5/325] 1 tablet PO NOW STA
US Legs, Right [US Periph Venous LOWER Ext RT] Urgent
Comment:
Reason For Exam: RLE swelling
03/23/25 11:41
CR Chest - 2 Views Urgent
Comment:
Reason For Exam: CP
03/23/25 13:07
Bladder Scan- Treatment ONCE
03/23/25 13:19
0.9% Sodium Chloride 1000 ml [Nss] 1,000 ml IV BOLUS
Potassium Chloride [KCl] 40 meq PO NOW STA
03/23/25 13:45
Electrocardiogram (*1) Urgent
Reason for Study: Chest Pain
EKG- Treatment ONCE
03/23/25 14:06
Potassium Chloride [KCl] 40 meq 0.9% Sodium Chloride 250 ml [Nss] 250 ml IV NOW
03/23/25 14:15
Troponin I Urgent
03/23/25 16:23
Admit/Transfer Patient As Directed
Co-Sign Provider:
Level of Care: Observation services
Assign to:: Telemetry
Physician / Group: Chitra Childress
Diagnosis: hypokalemia, chest pain
Reason for Telemetry: Chest Pain syndromes
Date to Stop Telemetry: 03/25/25
Time to Stop Telemetry: 11:00
PRN Pain Medication Management As Directed
May give lesser potent ordered pain med per pt: Yes
preference::
Protocol:: Medication orders for pain may be administered in a
manner that supports deferring to patient preference
when the pt is:
- Requesting an ordered lesser potent pain medication.
Least to most potent pain medications are defined
as: acetaminophen < NSAID < tramadol < opioids
(morphine, oxycodone, hydromorphone).
- Requesting a lesser dose of the same medication IF
ORDERED.
- Requesting a less intrusive route of administration
if both routes are prescribed by the provider (PO <
IV).
03/23/25 16:24
Code Status As Directed
Resuscitation Status: Full Code
03/23/25 17:44
Electrocardiogram (*1) Q3H
Reason for Study: Chest Pain
Comment: at admission and Q3H for total of 3, to be done with each troponin
Diazepam [Valium] 5 mg PO BIDPRN PRN anxiety
Oxycodone/Acetaminophen [Percocet 5/325] 1 tablet PO Q6HPRN PRN severe pains
midazolam [Nayzilam] 5 mg NASAL DAILYPRN PRN
03/23/25 17:44
Activity As Directed
Activity Level: As Tolerated
INT (Intravenous Needle Therapy) As Directed
Comment: maintain peripheral IV access
Intake/ Output As Directed
Frequency: Per unit guidelines
Vital Signs As Directed
Frequency: q4h
Weight As Directed
Frequency: Once
Comment: on admission
Pulse Ox/spot Check [RESP] Routine
Quantity: 1
DX Deep Vein Thrombosis Video Routine
03/23/25 18:24
Glycohemoglobin (HgbA1c) Routine
Troponin I Q3H
Comment: at admit & Q3H for 3 total including ED draws, obtain ECG with each level
03/23/25 18:47
Sumatriptan Succinate [Imitrex] 50 mg PO Q2HPRN PRN
03/23/25 20:00
Brivaracetam [Briviact] 100 mg PO BID
NIFEdipine EXTENDED RELEASE [Procardia Xl (Extended Release)] 30 mg PO BID
03/23/25 22:00
Magnesium Oxide 400 mg PO HS
03/24/25 00:00
Heparin 5,000 units SC Q8
03/24/25 07:36
Basic Metabolic Panel IN AM
Cardiovascular Evaluation IN AM
03/24/25 08:00
Hydrocortisone [Cortef] 10 mg PO DAILY
03/24/25 12:00
Multivitamin [Theragran] 1 tablet PO NOON
03/25/25 11:00
DC Protocol for Telemetry ONCE
Abnormal Lab Results
03/23/25
10:41
Absolute Monos (auto) 1.0 H 10^3/uL
(0.1-0.6)
Monocytes % 10.3 H %
(1.7-9.3)
Potassium 2.8 L mmol/L
(3.5-5.1)
Creatinine 1.8 H mg/dL
(0.7-1.3)
Glucose 109 H mg/dl
(70-99)
Calcium 10.4 H mg/dl
(8.4-10.2)
Magnesium 2.4 H mg/dl
(1.6-2.3)
03/23/25 10:41
03/23/25 10:41
Vital Signs
Initial and Last Documented VS:
Initial Vital Signs
Pulse Resp BP Pulse Ox
88 28 135/82 100
03/23/25 10:28 03/23/25 10:28 03/23/25 10:28 03/23/25 10:28
Last Documented Vital Signs
Temp Pulse Resp BP Pulse Ox
98.7 F 77 18 138/95 95
03/24/25 11:22 03/24/25 11:22 03/24/25 11:22 03/24/25 11:22 03/24/25 11:22
<Elvia Han PA-C - Last Filed: 03/24/25 11:45>
MDM/Problems Addressed
Differential Diagnosis Includes:
Not limited to: anxiety/panic attack, ACS, DVT, electrolyte abnormality, cardiac arrythmia, etc
MDM/Problems Addressed:
69-year-old male with a history of coronary artery disease presented with a brief episode of chest pain and palpitations that occurred while undergoing EEG placement. He denied associated shortness of breath, diaphoresis, or radiation of pain. By
the time of evaluation, symptoms had resolved.
Vital signs remained stable throughout ED stay. EKG showed no acute ischemic changes but did reveal mildly prolonged QTc. Serial troponins were negative �2. Given his history of CAD, ischemia remains on the differential, although the presentation is
atypical and may be related to anxiety or a panic episode.
The patient also reported progressive swelling in the right lower extremity over the past few days. Ultrasound of the RLE was negative for DVT.
Laboratory evaluation notable for mild renal insufficiency (stable compared to baseline) and newly identified hypokalemia with K of 2.8. The etiology is unclear at this time. Given the degree of hypokalemia and potential for arrhythmia, IV fluid
administration and potassium repletion were initiated in the ED.
Due to cardiac history, hypokalemia, and need for ongoing monitoring during electrolyte repletion, the decision was made to admit the patient to the hospitalist service. Patient remains clinically stable at the time of admission.
Chronic conditions affecting care:
CAD
Acute Exacerbation and/or Progression of Chronic Illness:
N/A
<Elvia Han PA-C - Last Filed: 03/24/25 11:45>
*Radiology
Radiology exam reviewed: radiology read reviewed
*Pulse Oximetry
SaO2: 100
Oxygen Mode of Delivery: Room air
Patient hypoxic: no
*EKG
Interpreted by ED Provider?: Yes
EKG Intrepretation Date: 03/23/25
Interpretation: abnormal
Comparison EKG: changes noted
Heart Rate: 80
Rate: normal
Rhythm: sinus
[place]: normal axis
Interval: long QT
QRS Pattern: normal QRS
Ischemia: no ischemia
*[employer] Repairer Interpretation
Rate: normal
Interpretation: normal
Heart Rate: 86
Rhythm: sinus
*Critical Care Note
Total Time (30-74mins, 75-104mins- exclusive of procedures): Not Applicable
<Elvia Han PA-C - Last Filed: 03/24/25 11:45>
Patient Management
Discussion with other providers: Hospitalist
ED Attending Note
<Elvia Han PA-C - Last Filed: 03/24/25 11:45>
-
Portions of this chart may have been created with voice recognition software.� Occasional wrong word or��sound alike� substitutions may have occurred due to the inherent limitations of voice recognition software.
<Srinivas Hui MD - Last Filed: 03/23/25 16:18>
ED Attending Note
Patient seen and examined by attending physician: Yes
ED Attending Note:
I have seen and evaluated the patient with a [id number] encounter. I have spoken to the advance practicer provider and involved in the medical history, the physical exam, medical decision making.
Evaluation and management service: agree unless noted differently below.
Results interpretation: agree unless noted differently below.
Focused HPI: In short this is a 69-year-old male with extensive medical history who was getting an outpatient EEG and started to have palpitations, dizziness, chest discomfort. Came to the ER for assessment.
Physical exam: Awake and alert not in distress. Vital signs within normal limits on my assessment. No cardiac rubs Murmurs Appreciated. Lungs Sound Clear.
Medical Decision Makin-year-old male who presented for evaluation of palpitation, dizziness, chest discomfort earlier today. Labs today were significant for marked hypokalemia and mild RICCI. Will plan to monitor on telemetry, repleted
potassium and provide IV fluids. Monitor overnight given earlier palpitations with significant electrolyte derangement.
Discharge Plan
Departure
Patient Disposition: Admit
Date of Disposition: 03/23/25
Time of Disposition: 15:20
Presentation/result/management discussed w/ accepting MD/DO: Hospitalist
Discharge Problem:
Acute hypokalemia, Mild renal insufficiency, Chest pain
Interventions
Interventions:
*Risk Screen - Suicide Last Done: 03/23/25 10:36
*General Assessment Last Done: 03/23/25 10:42
*Neglect/Abuse Screening Last Done: 03/23/25 10:36
*ED- Fall Risk Assessment Last Done: 03/23/25 11:20
*ED COVID-19 Vaccine History Last Done: 03/23/25 11:21
*ED Influenza Vaccine History Last Done: 03/23/25 11:21
*Nursing Disposition Last Done: 03/23/25 17:39
ED- Cardiac Assessment Last Done: 03/23/25 11:20
Discharge Date and Time
Discharge Date/Time: 03/23/25 17:40
[2025-03-23] MEDS: NSS 1000 IV (14:16)
[2025-03-23] MEDS: KCL 270 MEQ IV (14:16)
[2025-03-23] MEDS: KCL 40 MEQ PO (14:16)
[2025-03-23 15:04] LABS: Magnesium 2.4 mg/dl (1.6-2.3)
[2025-03-23 15:11] LABS: Troponin I < 0.012 ng/ml
--- NOTE | 2025-03-23 15:35 | HPS.HSE ---
Addendum entered and electronically signed by Chitra Childress MD 03/23/25 16:43:
This is an addendum to H&P written by Nikia Benton on 03/23/2025. �Patient seen and examined dependently with [employer] PANELBOARD OPERATOR.
69-year-old male past medical history of CAD status post CABG, hypertension, seizure disorder, chronic back pain, CKD 3, BPH, chronic lower back pain/spinal stenosis, presenting with chest discomfort. �He was having ambulatory EEG when he felt a
strange sensation of the left chest and his heart was racing described as dull pressure/discomfort. �Denies shortness of breath, lightheadedness or sweating or nausea. �Increased swelling in the right lower extremity over the past 2 days. �Has been
having chronic lower back pain.
Vital signs normal. �EKG shows normal sinus rhythm. �QTc of 502.
Labs show creatinine of 1.8 from baseline of around 1.4. �Potassium 2.8. �Magnesium 2.4. �Troponins negative x 2. �Labs otherwise unremarkable.
Chest x-ray shows no acute cardiopulmonary process. �Peripheral venous ultrasound of right lower extremity shows no DVT.
Patient with chest pain possibly ischemic. �Mild QTc elevation secondary to hypokalemia. �Trend troponins x3.�
Unclear etiology of hypokalemia. �Replete potassium. Observation.�
Original Note:
Family Physician
-
Family Physician: Noel Matthews
Chief Complaint
-
significant pain
History of Present Illness
Patient is a 69-year-old male with past medical history significant for hypertension, hyperlipidemia, migraines, CAD, neuropathy, gout, chronic kidney disease III, chronic anemia and seizure disorder who presented to [facility] ED for evaluation of
significant pain. Patient reports that he was having EEG placed today in the primary care coordinator center when he had an episode of severe pain, worse than his normal chronic pain. He states it maybe similar to a panic attach he had 20 years ago.
agrees that she feels there was some form of anxiety component but has never seen him in so much pain. He does not recall specifically stating chest pain but he supposedly said this at ambulatory center staff. He denies any fever, chills, cough,
shortness of breath, chest pain, nausea, vomiting, constipation, diarrhea or urinary symptoms.
Medical History
Past Medical History
Past Medical History: Reports Other
Additional Past Medical History:
hypertension
hyperlipidemia
migraines
CAD
neuropathy
gout
chronic kidney disease III
chronic anemia
seizure disorder
Past Surgical History: Reports Other
Additional Past Surgical History:
B/L inguinal hernia repair
right hip replacement
RLE vein ablation
oronary artery bypass grafting x 3 using DAVION to LAD, LGSV to D, LGSV to OM (MPT - 03/19/23) 03/2023
Social History
Tobacco: Non-smoker
Alcohol: None
Personal:
Living: With Family
Employment: Employed
Family History
Family History: Other (Father: CAD; Brother NE ( at 36); Mother: scleroderma, PVD)
Allergies / Home Medications
Allergies reflects when Allergies were last updated in [facility].
Home Medications with original date entered in [facility]
Allergy/Medication List:
Allergies
Allergy/AdvReac Type Severity Reaction Status Date / Time
No Known Allergies Allergy Verified 03/23/25 10:32
Home Medications
diazepam 5 mg tablet 5 mg PO BIDPRN PRN anxiety 01/07/25
magnesium oxide 400 mg PO HS Supplement 01/07/25
therapeutic multivitamin 1 tab PO NOON Supplement 01/07/25
bisacodyl 5 mg tablet,delayed release (Dulcolax (bisacodyl)) 10 mg PO DAILYPRN PRN constipation 03/23/25
brivaracetam 100 mg tablet (Briviact) 100 mg PO BID 03/23/25
hydrocortisone 10 mg tablet 10 mg PO DAILY 03/23/25
midazolam 5 mg/spray (0.1 mL) nasal spray (Nayzilam) 5 mg intranasal DAILYPRN PRN seizures 03/23/25
nifedipine 30 mg tablet,extended release 30 mg PO BID 03/23/25
oxycodone-acetaminophen 5 mg-325 mg tablet 1 tab PO Q6HPRN PRN severe pains 03/23/25
sumatriptan succinate 100 mg tablet (Imitrex) 0 mg PO .COMPLEX 03/23/25
Review of Systems
-
History Source: Patient
Constitutional: Reports Other (generalized chronic pain )
EENT: Denies Sore Throat
Respiratory: Denies Cough or Trouble Breathing
Cardiac: Denies Chest Pain, Diaphoresis, Palpitations or Syncope
Abdomen/GI: Denies Abdominal Pain, Nausea, Vomiting or Diarrhea
: Denies Dysuria, Frequency, Difficulty Voiding or Urgency
Musculoskeletal: Reports Other (generalized chronic pain )
Skin: Denies Rash
Neurological: Denies Dizzy, Headache, Weakness or Numbness
Psych: Reports Anxiety
Physical Exam
Vital Signs
Vital Signs
Temp Pulse Resp BP Pulse Ox
98.1 F 82 14 139/96 97
03/23/25 10:43 03/23/25 15:00 03/23/25 15:00 03/23/25 15:00 03/23/25 15:00
Physical Exam
General: Well Developed, Well Nourished, Conversant and Obese
HEENT: NormoCephalic, Moist mucous membranes, Nose Appears Normal and Ears Appear Normal
Respiratory: Clear and Non Labored Respirations; No Wheezes, Rales, Rhonchi or Crackles
Cardiac: S1/S2, Regular Rhythm and Peripheral Edema (mild BLLE edema ); No Murmur, Rub or Gallop
GI: Soft, Non Tender, Non Distended and Normal Bowel Sounds
Musculoskeletal: No Clubbing and No Cyanosis
Skin: Warm and IV/Catheter Site
Neuro: Awake and AO x 3
Psych: Intact Judgment/Insight and Anxious
Laboratory Results
-
03/23/25 10:41
03/23/25 10:41
Laboratory Results
Total Bilirubin 0.9 mg/dl (0.2-1.3) 03/23/25 10:41
AST 28 U/L (17-59) 03/23/25 10:41
ALT 18 U/L (0-50) 03/23/25 10:41
Alkaline Phosphatase 114 U/L (38-126) 03/23/25 10:41
Troponin I < 0.012 ng/ml 03/23/25 14:15
Data Reviewed
-
Diagnostic Radiology: Report Reviewed by me (CXR: No acute cardiopulmonary process.)
Ultrasound: Report Reviewed by me (RLE Hui Venous US: No evidence of deep venous thrombosis of the right lower extremity. No interval change.)
Lab Data: Labs Reviewed by me (K+ 2.8, creat 1.8, eGFR 40.75)
Impression/Plan
-
IMPRESSION/PLAN:
#chest pain likely 2/2 chronic pain vs. anxiety
CXR: No acute cardiopulmonary process.
RLE Hui venous US: No evidence of deep venous thrombosis of the right lower extremity.
No interval change.
EKG: NORMAL SINUS RHYTHM
- Admit to telemetry
- trend troponin
#hypokalemia
K+ 2.8
- repleted in ED
- recheck in AM
#hypertension
- continue nifedipine
#migraines
- continue Imitrex PRN
#chronic kidney disease III
creat 1.8, eGFR 40.75
follows with nephrology
- appears stable
- monitor BMP
#chronic anemia
hgb 13.7, hct 39.4
- stable, trend H/H
#seizure disorder
follows with neurology
currently with EEG in place
- continue Briviact
#anxiety
- continue PRN diazepam
Code status: full code
DVT prophylaxis: heparin sq
[2025-03-23 19:07] LABS: Troponin I < 0.012 ng/ml
[2025-03-23] MEDS: BRIVIACT 100 MG PO (19:31)
[2025-03-23] MEDS: PROCARDIA XL (EXTENDED RELEASE) 30 MG PO (19:31)
[2025-03-23] MEDS: MAGNESIUM OXIDE 400 MG PO (21:38)
[2025-03-24 03:46] VITALS: BP 156/96
[2025-03-24 07:25] VITALS: BP 141/95
[2025-03-24 09:17] LABS: Blood Urea Nitrogen 14 mg/dl (9-20); Calcium 9.8 mg/dl (8.4-10.2); Carbon Dioxide 28 mmol/L (22-30); Chloride 105 mmol/L (98-107); Estimated Creatinine Clearance 52 ml/min; Glucose 81 mg/dl (70-99); HDL Cholesterol 31 mg/dl; LDL Cholesterol, Calculated 115 mg/dl; Potassium 3.4 mmol/L (3.5-5.1); Sodium 140 mmol/L (135-145); Very Low Density Lipoprotein 33 mg/dl (0-30); eGFR 46.93
[2025-03-24] MEDS: PROCARDIA XL (EXTENDED RELEASE) 30 MG PO ×2 (09:21→20:25)
[2025-03-24] MEDS: BRIVIACT 100 MG PO ×2 (09:22→20:25)
[2025-03-24] MEDS: CORTEF 10 MG PO (09:22)
[2025-03-24] MEDS: PERCOCET 5/325 1 TABLET PO ×2 (09:22→20:30)
[2025-03-24] MEDS: KCL 40 MEQ PO (09:46)
[2025-03-24 10:48] LABS: Glycohemoglobin (HgbA1c) 4.8 % (4.0-5.6)
[2025-03-24 11:22] VITALS: BP 138/95
--- NOTE | 2025-03-24 11:31 | W.PN.HOSP.TC ---
Today's Communication/Plan
-
Currently chest pain-free
Check urine studies and start IV fluids in interim
Echocardiogram pending
Assessment / Plan
Assessment / Plan
# Midsternal chest discomfort likely secondary to costochondritis versus anxiety versus low likelihood of angina
#CAD status post CABG March 2023
CXR: No acute cardiopulmonary process.
RLE Hui venous US: No evidence of deep venous thrombosis of the right lower extremity. No interval change.
Troponin was checked x 3 and found to be negative.
Will check echocardiogram to complete workup
Chest pain resolved without any intervention or nitroglycerin
Patient follows with [facility] cardiology and has appointment 04/02/2025
#hypokalemia
Potassium improved however still on the lower end. Will replete additional potassium today.
#hypertension
- continue nifedipine
#migraines
- continue Imitrex PRN
# Acute kidney injury on chronic kidney disease III
-Creatinine was 1.8 downtrending to 1.6. Seems mildly elevated compared to baseline.
- Check urine sodium and urine creatinine. Trial of IV fluids.
- Patient has an appointment with crm coordinator Dr. Андрей powers in office and he would like to follow-up with nephrology for further management.
#chronic anemia
hgb 13.7, hct 39.4
- stable, trend H/H
#seizure disorder
follows with neurology
currently with EEG ambulatory
- continue Briviact
#anxiety
- continue PRN diazepam
Code status: full code
DVT prophylaxis: heparin sq
Anticipated Discharge: Today
Subjective/Interval History
-
Date of Service: March 24, 2025
Currently in bed.
Denies any chest pain currently. Stated had episode of approximately midsternal discomfort.
Prior to event yesterday patient denied any chest pain at rest or with exertion.
No left-sided substernal nonradiating or crushing pain.
Objective Data
-
Labs:
Laboratory Results
03/24/25
07:36
Sodium 140
Potassium 3.4 L
Chloride 105
Carbon Dioxide 28
BUN 14
Creatinine 1.6 H
Glucose 81
Calcium 9.8
Vital Signs:
Vital Signs
Temp Pulse Resp BP Pulse Ox
98.7 F 77 18 138/95 95
03/24/25 11:22 03/24/25 11:22 03/24/25 11:22 03/24/25 11:22 03/24/25 11:22
I&O
03/23/25 03/24/25 03/25/25
06:59 06:59 06:59
Intake Total 480 / 480
Output Total 1700 / 1700
Balance -1220 / -1220
Physical Exam
-
General: Well Developed and No Apparent Distress
HEENT: Normocephalic, Atraumatic, Moist Mucous Membranes and Other (EEG leads noted)
Respiratory: Clear to Auscultation
Cardiac: Regular Rhythm and S1/S2; Negative Murmur, Rub or Gallop
GI: Soft, Nontender, Nondistended and Normal Bowel Sounds; Negative Organomegaly
Rectal: Deferred by Provider
Musculoskeletal: No Clubbing, No Cyanosis and No Edema
Skin: Negative Rash
Neuro: Awake, Alert, Oriented, AO x 3, No Motor Deficits and Nonfocal/Grossly Intact
Psych: Calm
Data Reviewed
-
Total Time Spent with Patient (in minutes): 55
[2025-03-24 11:54] VITALS: BMI 26.0
[2025-03-24] MEDS: NSS 1000 IV (12:00)
[2025-03-24] MEDS: THERAGRAN 1 TABLET PO (12:00)
--- NOTE | 2025-03-24 13:59 | CM ---
Alert awake oriented patient who lives with his Christine who lives in a 2 story home with 2 step to enter and 14 steps to bed and bathroom. He is independent in all activities of daily living.He was offered VN he declined need.He uses walker and
cane. KULKARNI letter explained and copy signed on chart
Pt JOSEPH hx / [facility] history
Pharmacy [facility]
PCP DR Matthews
PLAN Home Declined VN
[2025-03-24] MEDS: MORPHINE SULFATE 2 MG IV (14:13)
--- NOTE | 2025-03-24 15:22 | EEG.RPT ---
Electroencephalogram Report
Recording
Date of EE03/23/25
Type of EEG: Ambulatory
Length of EEG recordin day 16 minutes
Done with Video Recording: No
Patient Status: Outpatient
Recording Conditions: Awake, Drowsy and Asleep
Hyperventilation Performed: No
Photic Stimulation Performed: Yes
Report
24 HOUR AMBULATORY EEG SUMMARY
24 HOUR AMBULATORY EEG CONCLUSION(S):
Unremarkable EEG for age
CLINICAL CORRELATION:
A normal EEG may not rule out a diagnosis of epilepsy.
The patient�s logs did not indicate clinical symptoms. Patient was noted to have back pain and chest discomfort at the end of the procedure at which time he was admitted to the hospital.
Consideration for multiple day monitoring may be given.
Clinical correlation is advised.
METHODS:
A 21 channel digitized electroencephalogram (EEG) was initiated in the Clinical Neurophysiology Laboratory. The patient wore the device outside of the laboratory and returned after 24 hours for electrode and recorder removal. The 10/20
international system of electrode placement was used with bipolar electrode montage recorded. ECG was monitored. The [employer] quantitative EEG analysis system was utilized. [employer] QEEG analysis system was utilized.
IMPRESSION(S):
Quality
Good
Background
Maximal wakefulness: alpha
There was a normal anterior-posterior voltage gradient. With eye opening the background activity changed. No significant asymmetries of background activity noted.
Sleep
Drowsiness was suggested by slowing of the background rhythms
Stage I sleep was recorded
Stage 2 sleep was recorded
ECG
Unremarkable
[2025-03-24 15:35] VITALS: BP 141/94
[2025-03-24 19:18] VITALS: BP 148/97
[2025-03-24] MEDS: MAGNESIUM OXIDE 400 MG PO (20:25)
[2025-03-24 23:14] VITALS: BP 136/90
[2025-03-25] MEDS: NSS 1000 IV (02:53)
[2025-03-25 03:40] VITALS: BP 114/74
[2025-03-25 06:00] VITALS: BMI 25.8
[2025-03-25 08:00] VITALS: BP 135/90
[2025-03-25 09:04] LABS: Blood Urea Nitrogen 12 mg/dl (9-20); Calcium 9.8 mg/dl (8.4-10.2); Carbon Dioxide 25 mmol/L (22-30); Chloride 109 mmol/L (98-107); Estimated Creatinine Clearance 56 ml/min; Glucose 87 mg/dl (70-99); Potassium 3.4 mmol/L (3.5-5.1); Sodium 139 mmol/L (135-145); eGFR 50.71
[2025-03-25] MEDS: BRIVIACT 100 MG PO (09:16)
[2025-03-25] MEDS: PROCARDIA XL (EXTENDED RELEASE) 30 MG PO (09:16)
[2025-03-25] MEDS: CORTEF 10 MG PO (09:17)
[2025-03-25] MEDS: PERCOCET 5/325 1 TABLET PO (09:21)
[2025-03-25] MEDS: KCL 40 MEQ PO (09:22)
--- NOTE | 2025-03-25 09:27 | W.PN.HOSP.TC ---
Today's Communication/Plan
-
knows to return to ER if CP/discomfort recurs
dc today
replete kcl
Assessment / Plan
Assessment / Plan
# Midsternal chest discomfort likely secondary to costochondritis versus anxiety versus low likelihood of angina
#CAD status post CABG March 2023
CXR: No acute cardiopulmonary process.
RLE Hui venous US: No evidence of deep venous thrombosis of the right lower extremity. No interval change.
Troponin was checked x 3 and found to be negative.
ECHO noted. NO events on telemetry.
Chest pain resolved without any intervention or nitroglycerin
Patient follows with [facility] cardiology and has appointment 04/02/2025
Pt with elevated cholestrol-stopped taking statin on his own accordance
states his forestry conservation worker told him to stop taking asa/plavix.
#hypokalemia
Potassium improved however still on the lower end. Will replete additional potassium today.
#hypertension
- continue nifedipine
#migraines
- continue Imitrex PRN
# Acute kidney injury on chronic kidney disease III
-Creatinine was 1.8 downtrending to 1.5.
- FENA with intrinsic pattern.
- Patient has an appointment with nuclear power plant engineer Dr. Chiang today in office and he would like to follow-up with nephrology for further management.
#chronic anemia
hgb 13.7, hct 39.4
- stable, trend H/H
#seizure disorder
follows with neurology
currently with EEG ambulatory
- continue Briviact
#anxiety
- continue PRN diazepam
Code status: full code
DVT prophylaxis: heparin sq
More than 30 minutes spent in discharge including
Final examination of the patient
Summarizing hospital stay
Instructions for continuing care to all relevant caregivers
Preparation of discharge records, prescriptions, and referral forms
Total time spent (in minutes): 54
Anticipated Discharge: Today
Subjective/Interval History
-
Date of Service: March 25, 2025
no chest pain or discomfort.
no overnight events
Objective Data
-
Labs:
Laboratory Results
03/25/25
07:35
Sodium 139
Potassium 3.4 L
Chloride 109 H
Carbon Dioxide 25
BUN 12
Creatinine 1.5 H
Glucose 87
Calcium 9.8
Vital Signs:
Vital Signs
Temp Pulse Resp BP Pulse Ox
97.7 F 88 12 136/88 99
03/25/25 08:00 03/25/25 09:16 03/25/25 08:00 03/25/25 09:16 03/25/25 08:00
I&O
03/24/25 03/25/25 03/26/25
06:59 06:59 06:59
Intake Total 480 / 480 1300 / 1300
Output Total 1700 / 1700 2600 / 2600
Balance -1220 / -1220 -1300 / -1300
Physical Exam
-
General: Well Developed and No Apparent Distress
HEENT: Normocephalic, Atraumatic, Moist Mucous Membranes and Other (EEG leads noted)
Respiratory: Clear to Auscultation
Cardiac: Regular Rhythm and S1/S2; Negative Murmur, Rub or Gallop
GI: Soft, Nontender, Nondistended and Normal Bowel Sounds; Negative Organomegaly
Rectal: Deferred by Provider
Musculoskeletal: No Clubbing, No Cyanosis and No Edema
Skin: Negative Rash
Neuro: Awake, Alert, Oriented, AO x 3, No Motor Deficits and Nonfocal/Grossly Intact
Psych: Calm
--- NOTE | 2025-03-25 09:31 | W.DCSUMMARY ---
Discharge Summary
Discharge Data
Date of Admission: 03/23/25
Date of Discharge: 03/25/25
-
Pending Results: No
Hospital Course
69-year-old male past medical history of CAD status post CABG, CKD, anemia, seizure disorder, anxiety who is presenting after complaints of substernal discomfort. Patient was getting ambulatory EEG placement done when he had this episode. Episode
did not last long. There was no aggravating alleviating factor. Patient was admitted to hospital for further management. Troponins were checked which was found to be negative x 3 which was reassuring. Patient underwent echocardiogram Left
ventricular ejection fraction is normal with an ejection fraction of 54 % by Fields's biplane method of discs. The right ventricle appears to be of normal size and function by visual estimation. Aortic sclerosis without stenosis. Compared prior
study dated 01/08/2025, there is little significant change. No events were noted on telemetry. Patient did not have any further episode of chest discomfort while he was ambulatory. Patient stated he stopped taking cholesterol medication on his own
in accordance. Patient was recommended of high cholesterol recommend to follow-up with primary doctor. Patient stated his quarantine inspector stopped his antiplatelet agents. Patient was also found to have hypokalemia which was repleted. Patient also
had acute kidney injury on chronic kidney disease. Patient FENA with intrinsic value. Patient creatinine down trended. Patient to follow-up with his primary serging machine operator automatic and quarantine inspector. Patient verbalized understanding to return to ER if he
had any recurrence of chest discomfort or chest pain.
Discharge Plan
-
Patient Disposition: Home (Routine Discharge)
Discharge Diagnosis/Procedures: Chest discomfort
Acute kidney injury
Hypokalemia
Condition: Fair
Diet: Low Cholesterol
Activity: With assistance and As tolerated
Driving Restrictions: As prior to admission
Blood Work: BMP in 3 to 5 days via primary doctor.
Instructions: High cholesterol, High triglycerides, Chest pain
Referrals:
Cristobal Yeager DO [Active, Nephrology] - 03/25/25 2:45 pm
Ambrocio Alas MD [Active, Cardiology]
Referral Note: keep your appointment with your primary quarantine inspector -04/08.
Noel Matthews DO [Family Provider, [facility]] - in less than 1 week
Prescriptions:
Continued
therapeutic multivitamin Tablet
1 tab PO NOON
diazepam 5 mg Tablet
5 mg PO BIDPRN PRN (Reason: anxiety)
magnesium oxide 400 mg magnesium Tablet
400 mg PO HS
nifedipine 30 mg tablet extended release
30 mg PO BID
sumatriptan succinate [Imitrex] 100 mg Tablet
0 mg PO .COMPLEX
Rx Instructions:
take 1 tab at onset of headache; if no relief, may repeat 1 tab after at least 2 hrs; max = 2 tabs/24 hrs
oxycodone-acetaminophen 5-325 mg Tablet
1 tab PO Q6HPRN PRN (Reason: severe pains)
bisacodyl [Dulcolax (bisacodyl)] 5 mg Tablet,Delayed Release (Dr/Ec)
10 mg PO DAILYPRN PRN (Reason: constipation)
hydrocortisone 10 mg Tablet
10 mg PO DAILY
Briviact 100 mg Tablet
100 mg PO BID
Nayzilam 5 mg/spray (0.1 mL) [place],Non-Aerosol
5 mg INTRANASAL DAILYPRN PRN (Reason: seizures)
Discharge Orders:
Discharge Patient (As Directed); Ordered 03/25/25
Ordered By: Jt Kelly
Discharge Date and Time
Discharge Date/Time: 03/25/25 11:23
Print Language: DIVEHI
--- NOTE | 2025-03-25 11:22 | CM ---
Pt dicharged to home, no needs
== END 2025-03-25 11:23 | disposition home or self-care (01) ==
LOC: 4 EAST ACU 16:57
PROVIDERS: Nurse Practitioner Family; Physician Assistant; ADMITTING PHYSICIAN Hospitalist; ATTENDING PHYSICIAN Hospitalist; EMERGENCY PHYSICIAN Emergency Medicine; FAMILY PHYSICIAN Family Medicine
DX: R07.9 Chest pain, unspecified (principal); I12.9 Hypertensive chronic kidney disease with stage 1 through stage 4 chronic kidney disease, or unspecified chronic kidney disease; I25.10 Atherosclerotic heart disease of native coronary artery without angina pectoris; G89.29 Other chronic pain; M19.90 Unspecified osteoarthritis, unspecified site; M54.50 Low back pain, unspecified; R60.9 Edema, unspecified; M79.89 Other specified soft tissue disorders; E87.6 Hypokalemia; N17.9 Acute kidney failure, unspecified; N40.0 Benign prostatic hyperplasia without lower urinary tract symptoms; N18.30 Chronic kidney disease, stage 3 unspecified; G40.909 Epilepsy, unspecified, not intractable, without status epilepticus; E78.5 Hyperlipidemia, unspecified; G43.909 Migraine, unspecified, not intractable, without status migrainosus; G62.9 Polyneuropathy, unspecified; M10.9 Gout, unspecified; D64.9 Anemia, unspecified; M54.9 Dorsalgia, unspecified; F41.9 Anxiety disorder, unspecified; I49.3 Ventricular premature depolarization; I34.81 Nonrheumatic mitral (valve) annulus calcification; I70.0 Atherosclerosis of aorta; Z95.1 Presence of aortocoronary bypass graft; Z82.49 Family history of ischemic heart disease and other diseases of the circulatory system; Z96.641 Presence of right artificial hip joint; Z79.899 Other long term (current) drug therapy
CPT/HCPCS: 95819; 71046; 80048; 80053; 80061; 82570; 83036; 83735; 84300; 84484; 85025; 93005; 93308; 93321; 93325; 93971; 96361; 96374; 99285